=== PATIENT | female | born 2000 | race Caucasian/White ===

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

== ENCOUNTER 2022-01-28 08:28 | Emergency (ER) | payer MEDICAID, SELFPAY ==
[2022-01-28 09:15] VITALS: BP 101/63; PULSE 110; RESP 16; TEMP 36.8; O2SAT 100
--- NOTE | 2022-01-28 10:00 | W.ED.GENAD ---
Discharge Plan Disposition Patient Disposition: HOME Condition: Stable Discharge Details Clinical Impression: Chest wall muscle strain Primary Care Provider: Jamar Trivedi ED Provider: Miguel Gonzales Home Meds and New Rx's Prescriptions: Continued prenat.vits,sherman,hxl-iyko-feetl Tablet 1 tab PO DAILY ondansetron 4 mg tablet,disintegrating 4 mg PO Q6H PRN (Reason: nausea and vomiting) Qty: 60 0RF acetaminophen 500 mg Tablet 1,000 mg PO PRN PRN Discharge Instructions Instructions: Muscle Strain (ED) Additional Instructions: You may continue to use czsl-dsw-[id number] acetaminophen and and get plenty of rest along with stay well-hydrated. If you develop any new or significant worsening of symptoms feel free to return to the emergency department for reassessment otherwise follow-up with your primary care provider or supervisor public message service for reassessment. Stand Alone Forms: Work Release Referrals: Jamar Trivedi [Primary Care Provider] - Discharge Data Discharge Date/Time-TO BE ENTERED AT DEPARTURE: 01/28/22 10:10 Medical Decision Making Patient presenting to the emergency department for chief complaint of chest wall pain. Patient reports that this occurred 4 days ago and denies any injury or trauma. Patient does report that she is approximately 9 weeks and has had significant amount of nausea and vomiting. Physical exam shows tenderness to the mid paraspinal tissue that reproduces pain. Patient also does have some tenderness with palpation of the lower ribs from the bra line down. Abdomen is soft and nontender and exam is otherwise unremarkable. I feel patient has musculoskeletal strain secondary to nausea and vomiting. Patient did recently have a ultrasound and has a viable intrauterine and denies any vaginal or lower pelvic symptoms. Will encourage continued use of acetaminophen and instructed patient on measures to attempt to well control nausea vomiting which I feel is contributing factor. Do not feel that patient needs further work-up at this time but did discuss low threshold to return for any new or significant worsening of symptoms. After discussion of diagnosis and plan of care patient has no further needs, questions, or concerns and states clear understanding to return to the emergency department for any worsening symptoms. This documentation was generated using [employer]ation system, please disregard any oddities of phrase or misspellings. HPI General Mode of arrival: ambulatory. Date/Time Provider Initiated Documentation: 01/28/22 08:43. Limitations to Documentation: no limitations. Information obtained by: patient. History of Present Illness 21 year old F presents to the emergency department with the chief complaint of rib pain , described as moderate, with intensity rated at 8. Quality is described as aching, and is localized to the chest. Patient started experiencing this day(s) (4) and it has been constant. No relieving factors improve symptom(s), Movement worsens symptoms . Patient notes no other symptoms.. Patient did receive the following treatments prior to arrival, other (Acetaminophen) Related Data Home Medications Medication Instructions Recorded Confirmed prenat.vits,sherman,vxn-xafg-yzwke 1 tab PO DAILY 07/21/21 01/28/22 acetaminophen 500 mg tablet 1,000 mg PO PRN PRN 09/03/21 01/28/22 ondansetron 4 mg disintegrating 4 mg PO Q6H PRN nausea and 01/19/22 01/28/22 tablet vomiting #60 tabs Previous Rx's Medication Instructions Recorded ondansetron 4 mg disintegrating 4 mg PO Q6H PRN nausea and 01/19/22 tablet vomiting #60 tabs Allergies Allergy/AdvReac Type Severity Reaction Status Date / Time No Known Allergies Allergy Verified 01/28/22 09:23 General Stated Complaint: Chest/Rib ARMANI: 4 Review of Systems Constitutional Constitutional: Denies chills and Denies fever(s) Cardiovascular Cardiovascular: Denies chest pain and Denies dyspnea Respiratory Respiratory: Denies cough and Denies dyspnea Gastrointestinal Gastrointestinal: Denies abdominal pain, Reports nausea and Reports vomiting Genitourinary Genitourinary: Denies abnormal vaginal bleeding, Denies dysuria, Denies flank pain and Denies vaginal discharge Musculoskeletal Musculoskeletal: Reports as per HPI, Reports back pain, Denies numbness and Denies tingling Integumentary/Breasts Skin/Breast: Reports system reviewed and no additional complaints, except as documented Neurologic Neurologic: Denies numbness and Denies tingling PFSH All Active Problems (Updated 01/28/22 @ 10:01 by Miguel Gonzales NP) Chest wall muscle strain (Acute) Headache (Acute) Upper respiratory infection (Acute) Obstructive sleep apnea (Chronic) Migraine aura without headache (Acute) Snoring (Acute 05/27/15) Medical History (Updated 01/28/22 @ 10:01 by Miguel Gonzales, STENCIL PRINTER) Adjustment disorder Migraine Missed 9w EGA. D&C 09/03/21. Surgical History H/O dilation and curettage 09/03/21. for missed ab at 9w EGA. History of oral surgery Family History Mother Cervical cancer Social History Smoking/Tobacco Use Status: Never Smoking risk assessment performed?: Yes Alcohol Intake: never Drug use: Never Substance use type: does not use Household members: other Details: - Noah Number of Children: 0 Education Level: high school Do you feel safe at home: Yes Do you feel safe in your relationship?: Yes Female Reproductive History Menstrual control method: none History History 1 Para Hx # Term Pregnancies Multiple births Hx # Pregnancies Ectopic pregnancies AB induced Hx Number of Living Children AB spontaneous 1 Past Pregnancies Del. Date GA/Weeks # Preg Succ Route Wgt Sex Labor Lgth Anesthesia Location Prov [facility] 09/03/21 9 [place]i [place] Delivery Date: 09/03/21 Last Updated by: Lexi Donato LPN missed ab Exam Const General: cooperative, healthy appearing, comfortable, no acute distress, not diaphoretic and not ill appearing Nutritional Appearance: average body habitus Orientation: alert, awake and oriented x3 Limitations: mental status not altered Neck Neck: normal visual inspection, full ROM, trachea midline, supple and no anterior neck swelling Chest Chest: normal inspection of the chest and tenderness rib Resp Effort & Inspection: normal respiratory effort and able to speak in complete sentences Auscultation: clear to auscultation bilaterally Cardio Jugular venous pressure: no JVD Palpation: normal PMI Rate: regular rate Rhythm: regular rhythm Heart Sounds: S1 normal, S2 normal, no click, no gallops, no murmurs and no rubs Bruits: no abdominal aortic bruits and no carotid bruits Pulses: radial pulses present bilaterally 2+ GI Inspection: normal to inspection Palpation: soft, no aortic enlargement, no pulsatile masses and nontender Auscultation: normal bowel sounds Back/Spine/Pelvis Thoracic/Lumbar Spine: thoracic and lumbar spine normal to inspection, pain with thoraco-lumbar ROM, paraspinal tenderness, No thoraco-lumbar ROM limited, No thoracic spinal tenderness and No lumbar spinal tenderness Skin General skin exam: no rashes or lesions noted Neuro General: patient alert, patient awake, patient oriented x3, tone normal and moves all extremities Course Vital Signs Vital signs: Vital Signs Temperature 36.8 C 01/28/22 09:15 Pulse 110 H 01/28/22 09:15 Respiratory Rate 16 01/28/22 09:15 Blood Pressure 101/63 01/28/22 09:15 Pulse Oximetry 100 01/28/22 09:15 Temperature 36.8 C 01/28/22 09:15 Pulse 110 H 01/28/22 09:15 Respiratory Rate 16 01/28/22 09:15 Respiratory Effort Non-Labored 01/28/22 09:20 Respiratory Depth Normal 01/28/22 09:20 Respiratory Pattern Normal 01/28/22 09:20 Blood Pressure 101/63 01/28/22 09:15 Blood Pressure Position Sitting 01/28/22 09:15 Pulse Oximetry 100 01/28/22 09:15 Oxygen Delivery Method Room Air 01/28/22 09:15 Oxygen Flow Rate 0 01/28/22 09:15 Pain Level 8 01/28/22 09:20
== END 2022-01-28 10:10 | disposition home or self-care (01) ==
PROVIDERS: Emergency Provider Nurse Practitioner Family; PCP Family Medicine
DX: O9A.211 Injury, poisoning and certain other consequences of external causes complicating pregnancy, first trimester (principal); S29.011A Strain of muscle and tendon of front wall of thorax, initial encounter; O09.291 Supervision of pregnancy with other poor reproductive or obstetric history, first trimester; Z98.890 Other specified postprocedural states; Z3A.09 9 weeks gestation of pregnancy; X50.9XXA Other and unspecified overexertion or strenuous movements or postures, initial encounter
CPT/HCPCS: 99281; 99282

== ENCOUNTER 2022-02-12 02:28 | Outpatient (CLI) | payer MEDICAID, SELFPAY ==
--- NOTE | 2022-02-12 14:00 | DI.US_ITS ---
Exam(s) US OB 1ST TRIMESTER EXAM: US OB 1ST TRIMESTER CLINICAL HISTORY: Unable to find FHT with doppler, h/o miscarriage, r/o demise @ 11 wks TECHNIQUE: Ultrasound performed using standard protocol. COMPARISON: No exams were available for comparison FINDINGS: First trimester protocol Ob ultrasound was performed. There is suspected demise. There is a n onviable fetus with crown-rump length measurements consistent with gestational age 8 weeks 2 days vis ualized in an abnormal appearing gestational sac. No cardiac activity identified. IMPRESSION: The appearance is consistent with demise of an 8 week gestation. DATA REPOSITORY:
[2022-02-12 18:30] LABS: *AMPHETAMINES SCREEN URINE Negative (Negative); *BARBITURATES SCREEN URINE Negative (Negative); *BENZODIAZEPINES SCREEN URINE Negative (Negative); Cannabinoids THC Negative (Negative); Cocaine Screen,Urine Negative (Negative); METHADONE URINE SCREEN Negative (Negative); OPIATES URINE SCREEN Negative (Negative)
[2022-02-12 18:31] LABS: Tricyclic Antidepressants Negative (Negative)
[2022-02-19 14:26] LABS: Buprenorphine Negative ng/mL (Cutoff: 5.0); Norbuprenorphine Negative ng/mL (Cutoff: 2.5)
== END 2022-02-12 02:29 | disposition home or self-care (01) ==
PROVIDERS: PCP Family Medicine; Visit Provider Advanced Practice Midwife
DX: O02.1 Missed abortion (principal)
CPT/HCPCS: 80307; 80348; 87077; 76801; 87086; 87186

== ENCOUNTER 2022-02-16 11:41 | Outpatient (CLI) | payer MEDICAID, SELFPAY ==
[2022-02-16 15:33] LABS: HCT 36.7 % (36.0-46.0); MCH 32.1 pg (27.0-33.0); MCHC 35.4 % (32.0-36.0); MCV 91 fL (80-95); MPV 8.8 fL (8.0-11.0); Platelet Count 315 10^3/uL (130-400); RBC 4.05 10^6/uL (3.93-5.22); RDW-SD 40.2 fL; WBC 13.26 10^3/uL (4.4-10.8)
[2022-02-16 16:19] LABS: HCG Qual (Serum) Positive
== END 2022-02-16 11:42 | disposition home or self-care (01) ==
LOC: LBO 11:43
PROVIDERS: PCP Family Medicine; Visit Provider Obstetrics & Gynecology Gynecology
DX: O02.1 Missed abortion (principal); Z01.818 Encounter for other preprocedural examination; Z01.812 Encounter for preprocedural laboratory examination
CPT/HCPCS: 36415; 85027; 86850; 86900; 86901; 84703

== ENCOUNTER 2022-02-18 07:19 | Day surgery (SDC) | payer MEDICAID, SELFPAY ==
[2022-02-18 07:15] VITALS: BP 98/66; PULSE 88; RESP 18; TEMP 36.7; O2SAT 99
[2022-02-18] MEDS: DOXYCYCLINE 100 MG in Normal Saline 100 ML IVPB (07:45)
[2022-02-18] MEDS: Lactated Ringers 1,000 ML 125 ML IV (07:47)
--- NOTE | 2022-02-18 08:32 | ANES.PREOP_ITS ---
General Info Date of Service Date Performed: 02/18/22 Height: 5 ft 1 in Weight: 48.9 kg Body Mass Index (BMI): 20.3 Surgical Procedure: Operation Date: 02/18/22 08:55 Proposed Procedure Side Surgeon p D&C Suction Completion, Cervical Dilation Arti Singleton MD Meds Allergies and Home Medications Allergies Allergy/AdvReac Type Severity Reaction Status Date / Time No Known Allergies Allergy Verified 02/18/22 06:57 Home Medication Medication Instructions Recorded prenat.vits,sherman,kdq-zfnk-gjads 1 tab PO DAILY 07/21/21 acetaminophen 500 mg tablet 1,000 mg PO PRN PRN 09/03/21 ondansetron 4 mg disintegrating 4 mg PO Q6H PRN nausea and 01/19/22 tablet vomiting #60 tabs nitrofurantoin 100 mg PO BID #14 caps 02/13/22 monohydrate/macrocrystals 100 mg capsule (Macrobid) Current Visit Medications: Current Medications Generic Name Dose Route Start Last Admin Trade Name Freq PRN Reason Stop Dose Admin Ringer's Solution 1,000 mls @ 125 mls/hr 02/18/22 06:00 02/18/22 07:47 IV 03/19/22 23:59 125 mls/hr INFUSION ISAIAH Administration Doxycycline Hyclate 100 mg/ 100 mls @ 100 mls/hr 02/18/22 06:00 02/18/22 07:45 Sodium Chloride IVPB 02/18/22 18:00 100 mls/hr PREOP ISAIAH Administration IV Miscellaneous Supplies 1 each 02/18/22 06:00 Iv Access IV 03/19/22 23:59 DIRECTED ISAIAH Sodium Chloride 0 ml 02/18/22 06:00 Normal Saline Flush 10 Ml Syr IV 03/19/22 23:59 PRN PRN Sodium Chloride 0 ml 02/18/22 06:00 Normal Saline 10 Ml Vial IJ 03/19/22 23:59 DIRECTED PRN Sterile Water 0 ml 02/18/22 06:00 Water,Injection,Sterile 10 Ml Vial IJ 03/19/22 23:59 DIRECTED PRN PFSH Active Problems Active Problems: Problem Status Onset Code E. coli UTI N39.0, B96.20 History of miscarriage, currently O09.299 Chest wall muscle strain S29.011A Headache R51.9 Upper respiratory infection J06.9 Obstructive sleep apnea G47.33 Migraine aura without headache G43.109 Snoring 05/27/15 R06.83 Medical History Medical History Adjustment disorder Migraine Missed 9w EGA. D&C 09/03/21. Surgical History Surgical History H/O dilation and curettage 09/03/21. for missed ab at 9w EGA. History of oral surgery Tobacco Smoking/Tobacco Use Status: Never Alcohol Alcohol Intake: never Substance Use Substance use: Never Substance use type: does not use Prental History History 1 Para 0 Hx # Term Pregnancies 0 Multiple births 0 Hx # Pregnancies 0 Ectopic pregnancies 0 AB induced 0 Hx Number of Living Children 0 AB spontaneous 1 Past Pregnancies Del. Date GA/Weeks # Preg Succ Route Wgt Sex Labor Lgth Anesth esia Location [facility] 09/03/21 9 [place]i [place] Delivery Date: 09/03/21 Last Updated by: Lexi Donato LPN missed ab Vital Signs and Lab Results Vital Signs Most Recent Vital Signs in EMR: Most Recent Vital Signs Temp Pulse Resp BP Pulse Ox 36.7 C 88 18 98/66 L 99 02/18/22 07:15 02/18/22 07:15 02/18/22 07:15 02/18/22 07:15 02/18/22 07:15 Lab Results Blood Type / Crossmatch: Patient ABO/Rh A Positive 02/16/22 Antibody Screen NEGATIVE 02/16/22 Complete Blood Count: White Blood Count 13.26 10^3/uL (4.4-10.8) H 02/16/22 15:29 Red Blood Count 4.05 10^6/uL (3.93-5.22) 02/16/22 15:29 Hemoglobin 13.0 g/dL (11.2-15.7) 02/16/22 15:29 Hematocrit 36.7 % (36.0-46.0) 02/16/22 15:29 Platelet Count 315 10^3/uL (130-400) 02/16/22 15:29 Complete Metabolic Panel: No Data to Display Liver Function Panel: No Data to Display Coagulation Panel: No Data to Display Cardiac Panel: No Data to Display Arterial Blood Gas: No Data to Display Venous Blood Gas: No Data to Display Pancreas Panel: No Data to Display Thyroid Panel: No Data to Display Infectious Disease: No Data to Display Blood Cultures: No Data to Display Toxicology Panel: Urine Amphetamines Screen Negative (Negative) 02/12/22 16:30 Urine Benzodiazepines Screen Negative (Negative) 02/12/22 16:3 0 Urine Barbiturates Screen Negative (Negative) 02/12/22 16:30 Urine Cocaine Screen Negative (Negative) 02/12/22 16:30 Urine Methadone Screen Negative (Negative) 02/12/22 16:30 Urine Opiates Screen Negative (Negative) 02/12/22 16:30 Ur Tricyclic Antidepressants Screen Negative (Negative) 16:30 Ur Tetrahydrocannabinol (THC) Scrn Negative (Negative) 2 16:30 Panel: Serum HCG, Qualitative Positive A 02/16/22 15:29 Anesthesia Assessment and Plan Anesthesia History Personal History: No History of Anesthesia Complications Family History: No Family History of Anesthesia Complications Exercise Tolerance Exercise Tolerance: Metabolic Equivalents>4 Pertinent Negatives Pertinent Negatives: No Symptoms of GERD, No Major Cardiovascular Symptoms or Complaints and No Major Pulmonary Symptoms or Complaints Cardiac & Pulmonary Exam Cardiac Exam: Normal S1/S2 Heart Sounds Pulmonary Exam: Clear Bilateral Breath Sounds Implantable Cardiac Device Does patient have a Pacemaker or an ICD?: No Airway Exam Known Difficult Airway: No Mallampati Class: 1 Mouth Opening: Normal (> 3cm) Thyromental Distance: Greater than 3 cm Neck Range of Motion: Full ROM Neck Circumference: Normal Teeth Condition: Normal Dentition ASA Classification ASA Score: ASA 2 Emergency Case?: No NPO Status NPO Status: NPO Clears >2 hours, Solids >8 hours Status Status: Positive HCG Anesthesia Plan Resuscitation Status: Full Code Anesthesia Technique: General Anesthesia Airway Planned: Natural Airway Monitors Used: Standard Monitors
[2022-02-18 08:36] VITALS: BMI 20.3
[2022-02-18] MEDS: Bupivacaine 0.25% Pres-Free 30 ML VIAL (09:22)
--- NOTE | 2022-02-18 09:30 | POCSPONT_PTH ---
PATIENT: Cristela Bravo LOC: [facility] U#:[id number] AGE/SX: 21/F ROOM: RE02/18/[address]: Arti Singleton : 2000 BED: DIS: 02/18/2022 SPEC #: [id number] RECD: 02/18/22 12:38 STATUS: NICOLLE REQ #: [id number] PATRICIA: 02/18/22 09:[address]: Arti Singleton DEPT: Surgical Specimen RECD BY: Ariana Colmenaers ENTERED: 02/18/22 12:39 SP TYPE: POCSPONT ELLE DR: Jamar Trivedi Tissues: 1 - ,SPONTANEOUS CHROMOSOME ANALYSIS PROFILE Procedures: GROSS AND MICRO LEVEL 4 CHROMOSOME ANALYSIS 15-20 CELLS CHROMOSOME ANALYSIS TISSUE CULTURE Comments: [id number] (CYTOGENETICS [id number])
--- NOTE | 2022-02-18 10:18 | W.PM.DSUDISC ---
Discharge Plan Disposition Patient Disposition: HOME Condition: Good Discharge Details Reason For Visit: D&C Attending Provider: Arti Singleton Primary Care Provider: Jamar Trivedi Home Meds and New Rx's Prescriptions: No Action prenat.vits,sherman,ipg-mcul-mxboy Tablet 1 tab PO DAILY ondansetron 4 mg tablet,disintegrating 4 mg PO Q6H PRN (Reason: nausea and vomiting) Qty: 60 0RF nitrofurantoin monohyd/m-cryst [Macrobid] 100 mg capsule 100 mg PO BID Qty: 14 0RF Rx Instructions: must administer with a meal/food acetaminophen 500 mg Tablet 1,000 mg PO PRN PRN Discharge Instructions Additional Instructions: The tissue has been sent for analysis of the chromosomes that formed the . We are trying to see if there is a genetic cause for your two recent miscarriages. No intercourse until your 2 week postop visit. Stand Alone Forms: DSU Post D&C Miscarriage Activity:: Activity as Tolerated Diet:: As Tolerated Discharge Orders Discharge Orders: Discharge Order (Routine); Ordered 02/18/22 Ordered By: Arti Singleton DS: Diagnosis Discharge Diagnosis (1) Missed : Status: Acute Asessment and Plan: CRL 9w EGA. Dx at 11w EGA
[2022-02-18 10:25] VITALS: BP 96/56; PULSE 66; RESP 16; TEMP 36.2; O2SAT 100
[2022-02-18] MEDS: oxyCODONE 5 mg/Acetaminophen 325 mg TAB 2 TAB PO (10:25)
--- NOTE | 2022-02-18 11:46 | W.ANESPOSTOP ---
Postoperative Evaluation Date, Time and Location Date Performed: 02/18/22 Time Performed: 11:47 Patient Location: Day Surgery Unit Vital Signs Most Recent Imported Vital Signs: Most Recent Vital Signs Temp Pulse Resp BP Pulse Ox 36.2 C L 66 16 96/56 L 100 02/18/22 10:25 02/18/22 10:25 02/18/22 10:25 02/18/22 10:25 02/18/22 10:25 Pain Score Most Recent Pain Score: Most Recent Pain Score Pain Level 3 02/18/22 1150 Assessment Mental Status: Awake (Alert & Oriented to Patient Baseline) Airway and Respiratory Function: Patent airway with normal (patient baseline) respiratory exam Cardiovascular Function: Hemodynamically Stable Hydration Status: Adequately Hydrated Nausea & Vomiting: No Nausea or Vomiting Pain: Pain is tolerable per patient Peripheral Nerve Block: Patient did not receive a nerve block
--- NOTE | 2022-02-22 05:30 | W.PM.OP ---
Date of service: 02/22/22 Time of Service: 05:30 Operative Note Operative Note DATE OF PROCEDURE: 02/18/22 PRE-OP DIAGNOSIS: Missed @ 8 weeks EGA PROCEDURE: Cervical dilation and suction D&C SURGEON: Arti Singleton MACHINE SWEEPER BRUSH MAKER: Rufina Alvarado Refer to Anesthesia Record ESTIMATED BLOOD LOSS: 15 PATHOLOGY: other (POC for chromosome testing. POC for pathology) COMPLICATIONS: None Patient was transported to: same day Patient's condition: stable Indications: 21yo female diagnosed with missed at time of 11w5d visit. CRL measurement c/w 8w embryonic demise. Findings: Bah non-viable IUP with collapsing gestational sac. Procedure Description: Patient was taken to the operating room where she was placed in the dorsal supine position and general anesthesia was administered without difficulty. IV Doxycycline was administered prior to arrival in the OR. She was then placed in the dorsal lithotomy position in yellowfin stirrups in a neurologically neutral position. She was then prepped, and draped in the usual sterile fashion. Surgical timeout was performed. A transabdominal ultrasound was used to visualize the uterus and intrauterine contents during the procedure. [place] speculum was placed into the vagina and the anterior lip of the cervix was infiltrated with 2 cc of 0.25% Marcaine without epinephrine. A single-tooth tenaculum was then used to grasp and hold the anterior lip of the cervix. A paracervical block was performed with 4 cc of 0.25% Marcaine injected into the 4 and 8:00 paracervical spaces respectively. The cervix was then sequentially dilated to a maximum of 16 Browne and a 8 mm curved suction cannula was attached to suction and the level of suction tested. The cannula was inserted into the uterine cavity attached to suction and sequentially all 4 quadrants of the uterine cavity were suction curetted until minimal tissue returned and the uterine cavity was empty as visualized on transabdomenal ultrasound. The suction cannula was then removed a banjo curette was used to perform a gentle curetting of all 4 quadrants of the uterine cavity. Minimal tissue was returned. A final insertion of the suction cannula and suction curetting of all 4 quadrants was performed. All instruments were removed from the vagina. The tenaculum site was noted to be bleeding. A interupted suture of 2-0 Vicryl was used to achieve hemostatisis. Pt was then placed in dorsal supine position. She was then awakened and transported to recovery area in stable condition. All sponge lap needle counts correct x2
== END 2022-02-18 11:56 | disposition home or self-care (01) ==
PROVIDERS: PCP Family Medicine; Visit Provider Obstetrics & Gynecology Gynecology
PROC: (CPT 59841; principal; 2022-02-18 08:45)
DX: O02.1 Missed abortion (principal); Z3A.08 8 weeks gestation of pregnancy
CPT/HCPCS: 59820; 88305; 88233; 88262; J1100; J1885; J2250; J2405; J3010

== ENCOUNTER 2022-03-04 03:21 | Outpatient (CLI) | payer MEDICAID, SELFPAY ==
[2022-03-04 12:50] LABS: HCG Quant, Pregnancy 67 mIU/mL (1-3)
[2022-03-04 17:35] LABS: INR 1.1 Ratio (0.9-1.1); PTT (UVM) 35 secs (26-37)
[2022-03-04 18:01] LABS: D-Dimer (UVM) <200 ng/mL DDU (<=230)
[2022-03-05 10:07] LABS: Antithrombin 3, Funct. 94 % (85-125); Factor 8 Assay 59 % (50-150)
[2022-03-05 17:11] LABS: Dilute Russell Viper Venom 32.5 secs (25.2-42.2); Silica Clotting Time 51.2 secs (30.2-48.4)
[2022-03-05 17:43] LABS: Beta 2 GP1 Ab IgG <9.4 U/mL; Beta 2 GP1 Ab IgM <9.4 U/mL
[2022-03-06 08:44] LABS: LA Cascade Summary (See Note)
[2022-03-06 08:49] LABS: Mix See Comments
[2022-03-06 14:37] LABS: Phospholipid Ab, IgG <9.4 GPL; Phospholipid Ab, IgM <9.4 MPL
[2022-03-11 11:24] LABS: Protein C, Functional 112 % (71-199); Protein S, Functional 100 % (64-147)
== END 2022-03-04 03:22 | disposition home or self-care (01) ==
LOC: LBO 03:21
PROVIDERS: PCP Family Medicine; Visit Provider Obstetrics & Gynecology Gynecology
DX: O02.1 Missed abortion (principal); N96 Recurrent pregnancy loss
CPT/HCPCS: 36415; 81241; 82784; 85300; 85303; 85306; 85610; 85613; 85730; 85732; 84702; 85240; 85379

== ENCOUNTER 2022-06-10 04:18 | Outpatient (CLI) | payer MEDICAID, SELFPAY ==
[2022-06-10 09:18] LABS: HCG Quant, Pregnancy 1 mIU/mL (1-3)
== END 2022-06-10 04:19 | disposition home or self-care (01) ==
LOC: LBO 04:19
PROVIDERS: PCP Family Medicine; Visit Provider Obstetrics & Gynecology Gynecology
DX: O08.89 Other complications following an ectopic and molar pregnancy (principal)
CPT/HCPCS: 36415; 84702

== ENCOUNTER 2022-06-16 11:08 | Emergency (ER) | payer MEDICAID, SELFPAY ==
[2022-06-16 11:30] VITALS: BP 113/97; PULSE 134; RESP 18; TEMP 38; O2SAT 99
[2022-06-16 12:50] VITALS: BP 116/72; PULSE 114; RESP 16; TEMP 37.8; O2SAT 96
[2022-06-16] MEDS: Ketorolac 15 MG/ML VIAL IVP (14:10)
[2022-06-16] MEDS: Normal Saline 1,000 ML 1000 ML IV (14:10)
[2022-06-16] MEDS: Albuterol HFA 8 GM 60 PUFF INH IH (14:28)
--- NOTE | 2022-06-16 15:30 | DI.RAD_ITS ---
Exam(s) XR CHEST 2V PA LATERAL EXAM: XR CHEST 2V PA LATERAL CLINICAL HISTORY: cough, fever. TECHNIQUE: 2D digital imaging was performed. COMPARISON: CR XR CHEST 2V PA LATERAL from 02/24/2021 FINDINGS: 2 views: Heart size is normal. The mediastinum is not widened. Lungs are clear. No infiltrates nor pleural effusions. Bidirectional thoracolumbar scoliosis again noted. IMPRESSION: No acute pulmonary findings. Scoliosis again noted. DATA REPOSITORY: RADIATION DOSE DELIVERED:
--- NOTE | 2022-06-16 15:31 | W.ED.GENAD ---
Discharge Plan Disposition Patient Disposition: Home Condition: Stable Discharge Details Clinical Impression: Viral illness Primary Care Provider: Jamar Trivedi ED Provider: Miguel Gonzales Home Meds and New Rx's Prescriptions: New albuterol sulfate 90 mcg/actuation aerosol powdr breath activated 2 inh inhalation Q4H PRN (Reason: shortness of breath or wheezing) Qty: 1 0RF benzonatate 200 mg capsule 200 mg PO TID PRN (Reason: cough) Qty: 30 0RF Continued ibuprofen 600 mg tablet 600 mg PO Q6H PRN (Reason: pain) Qty: 30 1RF prenat.vits,sherman,[id number] Tablet 1 tab PO DAILY ondansetron 4 mg tablet,disintegrating 4 mg PO Q6H PRN (Reason: nausea and vomiting) Qty: 60 0RF acetaminophen 500 mg Tablet 1,000 mg PO PRN PRN fluoxetine 20 mg capsule 20 mg PO DAILY Patient Comments: TAKE 1 CAPSULE BY MOUTH ONCE DAILY Discharge Instructions Instructions: Viral Syndrome (ED) Additional Instructions: It is very important during viral illness that you get plenty of rest and stay well-hydrated. Continue to take [id number] medications for pain fever or symptoms just take as directed on packaging. If you develop any new or significant worsening of symptoms feel free to return the emergency department otherwise follow-up with your primary care provider if not improving in the next week. Stand Alone Forms: Work Release Referrals: Jamar Trivedi [Primary Care Provider] - 1 week (If not improving) Discharge Data Discharge Date/Time-TO BE ENTERED AT DEPARTURE: 06/16/22 16:04 Medical Decision Making Viral cold type symptoms x1 day with chest tightness, cough, headaches, body aches. Physical exam shows tachycardia, no tachypnea, no hypoxia, HEENT exam unremarkable and clear lung sounds. Given significant tachycardia and fever will give patient Toradol and IV fluids, rapid antigen COVID testing was performed at triage and is negative. Patient denies any known exposure. Given chest tightness will give albuterol and perform chest x-ray. Review of x-ray shows no acute findings. Patient does state improvement of symptoms after interventions. Will prescribe patient Tessalon Perles and albuterol inhaler to use for symptoms along with work note. Monitoring of symptoms along with return and follow-up precautions were discussed. After discussion of diagnosis and plan of care patient has no further needs, questions, or concerns and states clear understanding to return to the emergency department for any worsening symptoms This documentation was generated using [employer] dictation system, please disregard any oddities of phrase or misspellings. Imaging Data Radiologic Study: Imaging: X-Ray Radiologist's impression: EXAM: XR CHEST 2V PA LATERAL CLINICAL HISTORY: cough, fever. TECHNIQUE: 2D digital imaging was performed. COMPARISON: CR XR CHEST 2V PA LATERAL from 02/24/2021 FINDINGS: 2 views: Heart size is normal. The mediastinum is not widened. Lungs are clear. No infiltrates nor pleural effusions. Bidirectional thoracolumbar scoliosis again noted. IMPRESSION: No acute pulmonary findings. Lab Data Lab results reviewed: Yes I reviewed the patient's lab results. HPI General Mode of arrival: ambulatory. Date/Time Provider Initiated Documentation: 06/16/22 11:37. Limitations to Documentation: no limitations. Information obtained by: patient and RN notes reviewed. History of Present Illness 21 year old F presents to the emergency department with the chief complaint of Cough, chest tightness, body aches, fever, described as moderate, with intensity rated at 6. Quality is described as aching, and is localized to the head. Patient reports no radiation. Patient started experiencing this day(s) (1) and it has been constant. No relieving factors improve symptom(s), No exacerbating factors reported . Patient notes cough, fever/chills and malaise. Patient did receive the following treatments prior to arrival, none Related Data Home Medications Medication Instructions Recorded Confirmed prenat.vits,sherman,[id number] 1 tab PO DAILY 07/21/21 06/16/22 acetaminophen 500 mg tablet 1,000 mg PO PRN PRN 09/03/21 06/16/22 ondansetron 4 mg disintegrating 4 mg PO Q6H PRN nausea and 01/19/22 06/16/22 tablet vomiting #60 tabs ibuprofen 600 mg tablet 600 mg PO Q6H PRN pain #30 tabs 02/18/22 06/16/22 albuterol sulfate 90 mcg/actuation 2 inh inhalation Q4H PRN shortness 06/16/22 breath activated powder inhaler of breath or wheezing #1 ea benzonatate 200 mg capsule 200 mg PO TID PRN cough #30 caps 06/16/22 fluoxetine 20 mg capsule 20 mg PO DAILY 06/16/22 06/16/22 Previous Rx's Medication Instructions Recorded ondansetron 4 mg disintegrating 4 mg PO Q6H PRN nausea and 01/19/22 tablet vomiting #60 tabs ibuprofen 600 mg tablet 600 mg PO Q6H PRN pain #30 tabs 02/18/22 albuterol sulfate 90 mcg/actuation 2 inh inhalation Q4H PRN shortness 06/16/22 breath activated powder inhaler of breath or wheezing #1 ea benzonatate 200 mg capsule 200 mg PO TID PRN cough #30 caps 06/16/22 Allergies Allergy/AdvReac Type Severity Reaction Status Date / Time No Known Allergies Allergy Verified 06/16/22 11:34 General Stated Complaint: GenMedical ARMANI: 3 Review of Systems Constitutional Constitutional: Reports body ache(s), Reports chills, Reports fever(s), Reports headache(s) and Reports malaise ENT Ears, Nose, Mouth, and Throat: Reports headache(s), Denies neck pain and Denies sore throat Cardiovascular Cardiovascular: Denies chest pain and Denies dyspnea Respiratory Respiratory: Reports cough, Reports pain with cough and Denies dyspnea Gastrointestinal Gastrointestinal: Reports nausea Musculoskeletal Musculoskeletal: Reports myalgias and Denies neck pain Integumentary/Breasts Skin/Breast: Denies rash Neurologic Neurologic: Reports headache(s) PFSH All Active Problems (Updated 06/16/22 @ 15:39 by Miguel Gonzales NP) Viral illness (Acute) Partial molar (Acute) 03/04/22. Will repeat hCG 03/2022, 04/2022. Encounter for Depo-Provera contraception (Acute) Contraception (Acute) Recurrent loss (Acute) Missed (Acute) 02/12/22 at 9w EGA by CRL. D&C at 11w EGA. E. coli UTI (Acute) History of miscarriage, currently (Acute) Headache (Acute) Upper respiratory infection (Acute) Obstructive sleep apnea (Chronic) Migraine aura without headache (Acute) Snoring (Acute 05/27/15) Medical History (Updated 06/16/22 @ 15:39 by Miguel Gonzales NP) Adjustment disorder Migraine Missed 9w EGA. D&C 09/03/21. Surgical History H/O dilation and curettage 09/03/21. for missed ab at 9w EGA. History of oral surgery Family History Mother Cervical cancer Social History Smoking/Tobacco Use Status: Never Smoking risk assessment performed?: Yes Alcohol Intake: never Drug use: Never Substance use type: does not use Household members: other Details: - Noah Number of Children: 0 Education Level: high school Do you feel safe at home: Yes Do you feel safe in your relationship?: Yes Female Reproductive History Menstrual control method: none History History 2 Para 0 Hx # Term Pregnancies 0 Multiple births 0 Hx # Pregnancies 0 Ectopic pregnancies 0 AB induced 0 Hx Number of Living Children 0 AB spontaneous 2 Past Pregnancies Del. Date GA/Weeks # Preg Succ Route Wgt Sex Labor Lgth Anesthesia Location [facility] 09/03/21 9 Arti Dutton 02/22/[address] Spencer Delivery Date: 09/03/21 Last Updated by: Lexi Donato LPN missed ab Delivery Date: 02/22/22 Last Updated by: Lexi Donato LPN missed ab Exam Const General: cooperative Orientation: alert and awake HENIL Head: normal to inspection, normocephalic and atraumatic Ears: hearing grossly normal bilaterally and TM's normal bilaterally General nose exam: external nose normal Face and sinus: no erythema Mouth: oral mucosae normal, no drooling, no muffled voice and no trismus Throat: posterior oropharynx normal Neck Neck: normal visual inspection, full ROM, no lymphadenopathy, no meningeal signs, trachea midline and supple Resp Effort & Inspection: normal respiratory effort, able to speak in complete sentences and cough Quality of cough: dry Auscultation: clear to auscultation bilaterally Cardio Rate: tachycardic Rhythm: regular rhythm Heart Sounds: S1 normal, S2 normal, normal S1 and S2, no click, no gallops, no murmurs and no rubs Skin General skin exam: no rashes or lesions noted and dry skin (warm) Neuro General: patient alert, patient awake, patient oriented x3, gait normal and moves all extremities Cognition: normal cognition Speech: speech normal Course Vital Signs Vital signs: Vital Signs Temperature 38.0 C H 06/16/22 11:30 Pulse 134 H 06/16/22 11:30 Respiratory Rate 18 06/16/22 11:30 Blood Pressure 113/97 H 06/16/22 11:30 Pulse Oximetry 99 06/16/22 11:30 Temperature 37.8 C H 06/16/22 12:50 Temperature Source Temporal Artery Scan 06/16/22 12:50 Pulse 114 H 06/16/22 12:50 Respiratory Rate 16 06/16/22 12:50 Respiratory Effort 06/16/22 11:35 Blood Pressure 116/72 06/16/22 12:50 Blood Pressure Position Sitting 06/16/22 11:30 Pulse Oximetry 96 06/16/22 12:50 Oxygen Delivery Method Room Air 06/16/22 12:50 Oxygen Flow Rate 0 06/16/22 12:50 Pain Level 10 06/16/22 11:30 Lab/Test Results Lab/Test Results: POC- Test(urine) Negative
[2022-06-16 15:54] VITALS: BP 116/72; PULSE 112; RESP 16; TEMP 38.6; O2SAT 96
== END 2022-06-16 16:04 | disposition home or self-care (01) ==
PROVIDERS: Emergency Provider Nurse Practitioner Family; PCP Family Medicine
DX: B34.9 Viral infection, unspecified (principal)
CPT/HCPCS: 81025; 96361; 96374; 99284; 71046; J1885

== ENCOUNTER 2022-12-25 07:14 | Emergency (ER) | payer MEDICAID, SELFPAY ==
[2022-12-25 07:20] VITALS: BP 104/57; PULSE 94; RESP 16; TEMP 36.9; O2SAT 98
--- NOTE | 2022-12-25 07:30 | RT.EKG_ITS ---
APPROVED REPORT Exam: Resting ECG Reason for Exam: pleuritic chest pain Patient Location: E HR:76 bpm ECG Measurements Heart Rate 76 AXIS [place] 116 P 18 QRSd 72 QRS 63 QT 353 T 38 QTc 397 Conclusion Sinus rhythm...normal P axis, V-rate 60- 99 sinius david , normal axis, normal intervals, non ischemic
--- NOTE | 2022-12-25 07:30 | DI.RAD_ITS ---
Exam(s) XR CHEST 2V PA LATERAL EXAM: XR CHEST 2V PA LATERAL CLINICAL HISTORY: right pleuritic chest pain. TECHNIQUE: 2D digital imaging was performed. COMPARISON: CR XR CHEST 2V PA LATERAL from 06/16/2022 FINDINGS: 2 views: Heart size is normal. The mediastinum is not widened. Lungs are clear. No infiltrates nor pleural effusions. Mild bidirectional thoracolumbar scoliosis is again noted, unchanged. IMPRESSION: No acute pulmonary findings. DATA REPOSITORY: RADIATION DOSE DELIVERED:
--- NOTE | 2022-12-25 07:44 | W.ED.GENAD ---
Discharge Plan Disposition Patient Disposition: Home Condition: Stable Discharge Details Clinical Impression: UTI (urinary tract infection) Primary Care Provider: Jamar Trivedi ED Provider: Ulises Manley Home Meds and New Rx's Prescriptions: New cefpodoxime 200 mg tablet 200 mg PO BID 10 Days Qty: 20 0RF Rx Instructions: must administer with a meal/food No Action ibuprofen 600 mg tablet 600 mg PO Q6H PRN (Reason: pain) Qty: 30 1RF prenat.vits,sherman,[id number] Tablet 1 tab PO DAILY ondansetron 4 mg tablet,disintegrating 4 mg PO Q6H PRN (Reason: nausea and vomiting) Qty: 60 0RF medroxyprogesterone [Depo-Provera] 150 mg/mL syringe 150 mg IM Q12W Qty: 1 4RF acetaminophen 500 mg Tablet 1,000 mg PO PRN PRN fluoxetine 20 mg capsule 20 mg PO DAILY Patient Comments: TAKE 1 CAPSULE BY MOUTH ONCE DAILY albuterol sulfate 90 mcg/actuation aerosol powdr breath activated 2 inh inhalation Q4H PRN (Reason: shortness of breath or wheezing) Qty: 1 0RF benzonatate 200 mg capsule 200 mg PO TID PRN (Reason: cough) Qty: 30 0RF Discharge Instructions Instructions: Urinary Tract Infection in Women (ED) Medical Decision Making 22-year-old female presents with right-sided pleuritic chest pain over the last day, posterior nature, nonradiating, no chest pain or shortness of breath, no hypoxia or tachypnea, borderline tachycardia, patient does use Depo control, no history of thromboembolic disease in the past, no leg swelling or pain. Lungs clear bilaterally no midline spinal tenderness. Consider recurrent pleurisy versus costochondritis versus must consider thromboembolic disease lower suspicion for pneumonia or pneumothorax muscles to consider musculoskeletal strain. Trial of Toradol, basic labs D-dimer EKG x-ray disposition pending reassessment and results 9: 17 patient resting comfortably no acute distress no respiratory symptoms. Found to have UTI. Consider early pyelo in the setting of UTI and back discomfort. Will start on cefpodoxime, home care instructions and return precautions given HPI General Date/Time Provider Initiated Documentation: 12/25/22 07:38. HPI Narrative: 22-year-old female presents with right-sided posterior pleuritic pain over the last day, endorses a history of pleurisy. Denies history of thromboembolic disease no leg swelling or pain no chest pain no shortness of breath. Patient is on depot control Related Data Home Medications Medication Instructions Recorded Confirmed prenat.vits,sherman,[id number] 1 tab PO DAILY 07/21/21 11/04/22 acetaminophen 500 mg tablet 1,000 mg PO PRN PRN 09/03/21 11/04/22 ondansetron 4 mg disintegrating 4 mg PO Q6H PRN nausea and 01/19/22 11/04/22 tablet vomiting #60 tabs ibuprofen 600 mg tablet 600 mg PO Q6H PRN pain #30 tabs 02/18/22 11/04/22 albuterol sulfate 90 mcg/actuation 2 inh inhalation Q4H PRN shortness 06/16/22 11/04/22 breath activated powder inhaler of breath or wheezing #1 ea benzonatate 200 mg capsule 200 mg PO TID PRN cough #30 caps 06/16/22 11/04/22 fluoxetine 20 mg capsule 20 mg PO DAILY 06/16/22 11/04/22 medroxyprogesterone 150 mg/mL 150 mg IM Q12W #1 mL 10/27/22 11/04/22 intramuscular syringe (Depo-Provera) cefpodoxime 200 mg tablet 200 mg PO BID 10 days #20 tabs 12/25/22 Previous Rx's Medication Instructions Recorded ondansetron 4 mg disintegrating 4 mg PO Q6H PRN nausea and 01/19/22 tablet vomiting #60 tabs ibuprofen 600 mg tablet 600 mg PO Q6H PRN pain #30 tabs 02/18/22 albuterol sulfate 90 mcg/actuation 2 inh inhalation Q4H PRN shortness 06/16/22 breath activated powder inhaler of breath or wheezing #1 ea benzonatate 200 mg capsule 200 mg PO TID PRN cough #30 caps 06/16/22 medroxyprogesterone 150 mg/mL 150 mg IM Q12W #1 mL 10/27/22 intramuscular syringe (Depo-Provera) cefpodoxime 200 mg tablet 200 mg PO BID 10 days #20 tabs 12/25/22 Allergies Allergy/AdvReac Type Severity Reaction Status Date / Time No Known Allergies Allergy Verified 06/28/23 10:16 General Stated Complaint: Nk/Back Pain ARMANI: 3 Review of Systems Narrative: Review of Systems Constitutional: negative Eyes: negative ENT: negative Cardiovascular: negative Respiratory: Pleuritic chest pain Gastrointestinal: negative : negative Musculoskeletal: negative Skin: negative Neurologic: negative Psych: negative PFSH All Active Problems (Updated 12/25/22 @ 09:18 by Ulises Manley MD) UTI (urinary tract infection) (Acute) Partial molar (Acute) 03/04/22. Will repeat hCG 03/2022, 04/2022. Encounter for Depo-Provera contraception (Acute) Contraception (Acute) Recurrent loss (Acute) Missed (Acute) 02/12/22 at 9w EGA by CRL. D&C at 11w EGA. E. coli UTI (Acute) History of miscarriage, currently (Acute) Headache (Acute) Upper respiratory infection (Acute) Obstructive sleep apnea (Chronic) Migraine aura without headache (Acute) Snoring (Acute 05/27/15) Medical History (Updated 12/25/22 @ 09:18 by Ulises Manley MD) Adjustment disorder Migraine Missed 9w EGA. D&C 09/03/21. Surgical History H/O dilation and curettage 09/03/21. for missed ab at 9w EGA. History of oral surgery Family History Mother Cervical cancer Social History Smoking/Tobacco Use Status: Never Smoking risk assessment performed?: Yes Alcohol Intake: never Drug use: Never Substance use type: does not use Household members: other Details: BF - Noah Number of Children: 0 Education Level: high school Do you feel safe at home: Yes Do you feel safe in your relationship?: Yes Female Reproductive History Menstrual control method: none History History 2 Para 0 Hx # Term Pregnancies 0 Multiple births 0 Hx # Pregnancies 0 Ectopic pregnancies 0 AB induced 0 Hx Number of Living Children 0 AB spontaneous 2 Past Pregnancies Del. Date GA/Weeks # Preg Succ Route Wgt Sex Labor Lgth Anesthesia Location [facility] 09/03/21 9 Arti Dutton 02/22/[address] Spencer Delivery Date: 09/03/21 Last Updated by: Lexi Donato LPN missed ab Delivery Date: 02/22/22 Last Updated by: Lexi Donato LPN missed ab Exam Narrative Exam Narrative: Physical Examination General: alert, awake, cooperative, resting comfortably, no acute distress HEENT: normocephalic, atraumatic; PERRL, EOM intact, conjunctiva normal; no nasal discharge; moist mucous membranes, oral and pharyngeal mucosa normal, tolerating secretions Neck: supple, trachea midline; full ROM Chest: normal to inspection Respiratory: normal respiratory effort, speaking in full sentences, clear to auscultation, no wheezing, rales or rhonchi Cardiac: regular rate, regular rhythm, S1S2 intact, no murmurs rubs or gallops GI: abdomen soft, non-tender, non-distended; no palpable mass or hepatosplenomegaly Back: No midline spinal tenderness Skin: no lesions, rashes or trauma appreciated Neuro: AAOx3, normal speech, moving all extremities Extremities: No peripheral edema Psych: Appropriate mood and affect Course Vital Signs Vital signs: Vital Signs Temperature 36.9 C 12/25/22 07:20 Pulse 94 H 12/25/22 07:20 Respiratory Rate 16 12/25/22 07:20 Blood Pressure 104/57 L 12/25/22 07:20 Pulse Oximetry 98 12/25/22 07:20 Temperature 36.9 C 12/25/22 07:20 Temperature Source Tympanic 12/25/22 07:20 Pulse 94 H 12/25/22 07:20 Respiratory Rate 16 12/25/22 07:20 Blood Pressure 104/57 L 12/25/22 07:20 Pulse Oximetry 98 12/25/22 07:20 Oxygen Delivery Method Room Air 12/25/22 07:20 Oxygen Flow Rate 0 12/25/22 07:20 Pain Level 8 12/25/22 07:20 Lab/Test Results Lab/Test Results: POC- Test(urine) Negative
[2022-12-25 08:14] LABS: Bilirubin Negative (Negative); Blood Trace-lysed (Negative); Clarity Turbid (Clear); Glucose Negative (Negative); Ketones Negative (Negative); Leukocyte Esterase Moderate (Negative); Nitrite Negative (Negative); Specific Gravity >= 1.030 (1.005-1.025); pH 5.5 (5-8)
[2022-12-25 08:23] LABS: C & S Indicated? No/Sq. Contamination; Epithelial Cells Many HPF (Negative); WBC >50 HPF (0-5)
[2022-12-25] MEDS: Ketorolac 15 MG/ML VIAL IVP (08:32)
[2022-12-25 08:40] LABS: Abs Immature Grans 0.02 10^3/uL (0.0-0.06); Absolute Basophil Count 0.06 10^3/uL (0.0-0.2); Absolute Eosinophil Count 0.23 10^3/uL (0.0-0.7); Absolute Lymphocyte Count 2.64 10^3/uL (1.2-3.4); Absolute Neutrophil Count 4.29 10^3/uL (1.2-6.7); Basophils % 0.8; HCT 40.6 % (36.0-46.0); HGB 13.7 g/dL (11.2-15.7); Immature Grans % 0.3; Lymphocytes % 34.6; MCH 30.7 pg (27.0-33.0); MCHC 33.7 % (32.0-36.0); MCV 91 fL (80-95); MPV 8.5 fL (8.0-11.0); Monocytes % 5.2; Neutrophils % 56.1; Platelet Count 309 10^3/uL (130-400); RBC 4.46 10^6/uL (3.93-5.22); RDW 11.8 % (11.7-14.6); RDW-SD 39.5 fL; WBC 7.64 10^3/uL (4.4-10.8)
[2022-12-25 08:52] LABS: ALT 13 U/L (14-59); AST 8 U/L (15-37); Albumin 3.9 g/dL (3.4-5.0); Alkaline Phosphatase 69 U/L (46-116); Anion Gap 9.1 mmol/L (3-11); BUN 7 mg/dL (7-18); Bilirubin, Total 0.3 mg/dL (0.2-1.0); CO2 26.9 mmol/L (21.0-32.0); CREATININE 0.9 mg/dL (0.55-1.02); Calcium 8.9 mg/dL (8.5-10.1); Chloride 107 mmol/L (98-107); Estimated GFR 93.86 (mL/min/1.73m2); Glucose 90 mg/dL (74-106); Potassium 3.7 mmol/L (3.5-5.1); Sodium 143 mmol/L (136-145); Total Protein 7.4 g/dL (6.4-8.2)
[2022-12-25 09:07] LABS: D-Dimer 126 ng/mlFEU (<500)
[2022-12-25] MEDS: Cefpodoxime 200 MG TAB PO (09:19)
== END 2022-12-25 09:32 | disposition home or self-care (01) ==
PROVIDERS: Emergency Provider Emergency Medicine; PCP Family Medicine
DX: N39.0 Urinary tract infection, site not specified (principal); R04.0 Epistaxis
CPT/HCPCS: 80053; 81025; 93005; 96374; 99284; 71046; 81003; 81015; 85025; 85379; 93010; J1885

== ENCOUNTER 2023-02-01 13:33 | Emergency (ER) | payer MEDICAID, SELFPAY ==
[2023-02-01 13:37] VITALS: BP 102/78; PULSE 99; RESP 15; TEMP 37.1; O2SAT 100
[2023-02-01 14:56] LABS: Bilirubin Negative (Negative); Blood Negative (Negative); Clarity Sl Cloudy (Clear); Glucose Negative (Negative); Ketones Trace mg/dL (Negative); Leukocyte Esterase Small (Negative); Nitrite Negative (Negative); Specific Gravity >= 1.030 (1.005-1.025); pH 5.5 (5-8)
[2023-02-01 15:06] LABS: Bacteria Rare HPF (Negative); C & S Indicated? No/Sq. Contamination; Casts 0-2 Hyaline LPF (Negative); Crystals Rare Calcium Oxalate HPF (Negative); Epithelial Cells Many HPF (Negative); Mucus Moderate (Negative); RBC Negative HPF (0-2)
--- NOTE | 2023-02-01 15:45 | W.ED.GENAD ---
Discharge Plan Disposition Patient Disposition: Home Condition: Good Discharge Details Clinical Impression: Abdominal pain Primary Care Provider: Jamar Trivedi ED Provider: Beata Mcdonald Home Meds and New Rx's Prescriptions: Continued ibuprofen 600 mg tablet 600 mg PO Q6H PRN (Reason: pain) Qty: 30 1RF Patient Comments: Pt states not taking ML 02/01/23 cefpodoxime 200 mg tablet 200 mg PO BID Patient Comments: Patient stated that she is currently on antibiotic. Pt states not taking ML 02/01/23 Rx Instructions: must administer with a meal/food medroxyprogesterone [Depo-Provera] 150 mg/mL syringe 150 mg IM Q12W Qty: 1 4RF acetaminophen 500 mg Tablet 1,000 mg PO PRN PRN Patient Comments: Pt states not taking ML 02/01/23 fluoxetine 20 mg capsule 20 mg PO DAILY Patient Comments: TAKE 1 CAPSULE BY MOUTH ONCE DAILY albuterol sulfate 90 mcg/actuation aerosol powdr breath activated 2 inh inhalation Q4H PRN (Reason: shortness of breath or wheezing) Qty: 1 0RF benzonatate 200 mg capsule 200 mg PO TID PRN (Reason: cough) Qty: 30 0RF Patient Comments: Pt states not taking ML 02/01/23 Discharge Instructions Instructions: Abdominal Pain (ED) Additional Instructions: As we discussed, your labs and exam are reassuring here today. Please continue to encourage hydration. Please try to eat a bland and easy digest diet such as bananas, rice, applesauce, toast. Please keep a journal of your recurrent abdominal symptoms to see if there is any specific triggers. As we discussed, I am concerned that this may be associated with your chronic marijuana usage causing post recurrent abdominal pain. Please call your primary care provider to schedule follow-up appointment in 1 week. If you develop any fever/chills, increased pain, inability stay hydrated or other new/worsening symptom please seek care urgently once again. Stand Alone Forms: Work Release Referrals: Jamar Trivedi [Primary Care Provider] - Discharge Data Discharge Date/Time-TO BE ENTERED AT DEPARTURE: 02/01/23 18:05 Medical Decision Making Patient is a pleasant 22 year old female, pmh of missed , miscarriage, AKILAH, migraine, presenting today with c/c of recurrent abdominal pain. States that this began yesterday and comes in waves of diffuse pain. Had one episode of emesis today which was concerning as it had soem red tints. She states she did eat spaghetti with red sauce for dinner last night which was last meal prior to episode. She is concerned that she may have tasted blood. Denies change in bowel habits. States she has been here several times for similar pain. No previous abdominal surgeries but has had 2 D&Cs. Denies change in vaginal discharge or vaginal pain. States she typically gets cramps prior to her depo shot which she is due for. Had long meses last month, unclear of exact time frame. States she smokes marijuana daily for sleep. Hot showers improve her pain. No change with eating although only had BBQ chips today. On exam, patient appears nontoxic. She is resting comfortably. Abdomen is indicated to be diffusely tender but no pain with palpation, no peritoneal findings. Good bowel sounds. Lungs clear, normal cardiac exam, moist mucus membranes. Differential is fairly broad. I do not see indication of surgical abdomen. No peritoneal findings. More concerning for viral or bacterial infection, although no diarrhea or signficant vomiting. No recent abx. Considered cannaboid induced hyperemesis and discussed with patient but she declines treatment such as topical options for this. negative. UA contaminated, not consistent with infection. Labs reviewed. No leukocytosis. Stable H&H. CMP without significant abnormality. She not having any significant left upper quadrant pain, epigastric pain or pain rating into the back, no significant alcohol intake. History exam not consistent with pancreatitis. Do not see indication for imaging at this time as she has no focal tenderness or peritoneal findings. Patient reporting that family members have COVID and flu. Tested today which is negative. Encourage that she continue to think about her marijuana use that this may be causing her recurrent episodes of severe diffuse abdominal discomfort as well as nausea and occasional vomiting. She has declined all analgesics while here as well as antiemetics. Return precautions discussed. Advise follow-up with primary care in 1 week. Supportive care discussed. All of her questions and concerns were addressed and she is agreement this plan. HPI General Date/Time Provider Initiated Documentation: 02/01/23 14:27. Limitations to Documentation: no limitations. Information obtained by: patient, family and RN notes reviewed. History of Present Illness 22 year old F presents to the emergency department with the chief complaint of diffuse abdominal pain, described as severe, with intensity rated at 8. Quality is described as stabbing, and is localized to the abdomen. Patient reports no radiation. Patient started experiencing this day(s) and it has been intermittent. No relieving factors improve symptom(s), No exacerbating factors reported . Patient notes loss of appetite, malaise and nausea/vomiting; denies chest pain, cough, fever/chills, rash and shortness of breath. Patient did receive the following treatments prior to arrival, none Related Data Home Medications Medication Instructions Recorded Confirmed acetaminophen 500 mg tablet 1,000 mg PO PRN PRN 09/03/21 01/06/23 ibuprofen 600 mg tablet 600 mg PO Q6H PRN pain #30 tabs 02/18/22 01/06/23 albuterol sulfate 90 mcg/actuation 2 inh inhalation Q4H PRN shortness 06/16/22 02/01/23 breath activated powder inhaler of breath or wheezing #1 ea benzonatate 200 mg capsule 200 mg PO TID PRN cough #30 caps 06/16/22 01/06/23 fluoxetine 20 mg capsule 20 mg PO DAILY 06/16/22 02/01/23 medroxyprogesterone 150 mg/mL 150 mg IM Q12W #1 mL 10/27/22 02/01/23 intramuscular syringe (Depo-Provera) cefpodoxime 200 mg tablet 200 mg PO BID 01/06/23 Previous Rx's Medication Instructions Recorded ibuprofen 600 mg tablet 600 mg PO Q6H PRN pain #30 tabs 02/18/22 albuterol sulfate 90 mcg/actuation 2 inh inhalation Q4H PRN shortness 06/16/22 breath activated powder inhaler of breath or wheezing #1 ea benzonatate 200 mg capsule 200 mg PO TID PRN cough #30 caps 06/16/22 medroxyprogesterone 150 mg/mL 150 mg IM Q12W #1 mL 10/27/22 intramuscular syringe (Depo-Provera) Allergies Allergy/AdvReac Type Severity Reaction Status Date / Time No Known Allergies Allergy Verified 02/01/23 16:31 General Stated Complaint: Abd Prob ARMANI: 3 Review of Systems Constitutional Constitutional: Reports as per HPI, Denies chills, Denies fatigue and Denies fever(s) Cardiovascular Cardiovascular: Reports as per HPI, Denies chest pain and Denies dyspnea Respiratory Respiratory: Reports as per HPI, Denies cough and Denies dyspnea Gastrointestinal Gastrointestinal: Reports as per HPI Musculoskeletal Musculoskeletal: Reports as per HPI and Denies back pain Integumentary/Breasts Skin/Breast: Reports as per HPI and Denies rash Neurologic Neurologic: Reports as per HPI Endocrine Endocrine: Denies fatigue PFSH All Active Problems (Updated 02/01/23 @ 17:43 by JORDIN Lazo) Abdominal pain (Acute) Exposure to chlamydia (Acute) Partial molar (Acute) 03/04/22. Will repeat hCG 03/2022, 04/2022. Encounter for Depo-Provera contraception (Acute) Contraception (Acute) Recurrent loss (Acute) Missed (Acute) 02/12/22 at 9w EGA by CRL. D&C at 11w EGA. E. coli UTI (Acute) History of miscarriage, currently (Acute) Headache (Acute) Upper respiratory infection (Acute) Obstructive sleep apnea (Chronic) Migraine aura without headache (Acute) Snoring (Acute 05/27/15) Medical History (Updated 02/01/23 @ 17:43 by JORDIN Lazo) Adjustment disorder Migraine Missed 9w EGA. D&C 09/03/21. Surgical History H/O dilation and curettage 09/03/21. for missed ab at 9w EGA. History of oral surgery Family History Mother Cervical cancer Social History Smoking/Tobacco Use Status: Never Smoking risk assessment performed?: Yes Alcohol Intake: never Drug use: Daily Substance use type: marijuana Household members: other Details: - Noah Number of Children: 0 Education Level: high school Do you feel safe at home: Yes Do you feel safe in your relationship?: Yes Female Reproductive History Menstrual control method: none History History 2 Para 0 Hx # Term Pregnancies 0 Multiple births 0 Hx # Pregnancies 0 Ectopic pregnancies 0 AB induced 0 Hx Number of Living Children 0 AB spontaneous 2 Past Pregnancies Del. Date GA/Weeks # Preg Succ Route Wgt Sex Labor Lgth Anesthesia Location Prov Complic 09/03/21 9 Arti [place] 02/22/[address] Spencer Delivery Date: 09/03/21 Last Updated by: Lexi Donato LPN missed ab Delivery Date: 02/22/22 Last Updated by: Lexi Donato LPN missed ab Exam Const General: cooperative, healthy appearing, comfortable, no acute distress and well developed Nutritional Appearance: average body habitus and well nourished Orientation: alert and awake [facility] Head: normal to inspection Mouth: moist mucous membranes Resp Effort & Inspection: normal respiratory effort, able to speak in complete sentences and no respiratory distress Auscultation: clear to auscultation bilaterally, no rales, no rhonchi and no wheezes Cardio Rate: regular rate Rhythm: regular rhythm Heart Sounds: S1 normal and S2 normal GI Inspection: normal to inspection Palpation: soft, no hepatosplenomegaly, not firm, no guarding, no hernias, no masses, not rigid, nontender and No ascites Percussion: normal to percussion Auscultation: normal bowel sounds Back/Spine/Pelvis Back: no CVA tenderness Skin General skin exam: no rashes or lesions noted Trauma: no lacerations or abrasions Neuro General: patient alert and patient awake Cognition: normal cognition Speech: speech normal Gait: normal gait Psych Appearance: grossly normal and well kempt Mental Status: mental status grossly normal Speech and Movement: speech and movement normal Course Vital Signs Vital signs: Vital Signs Temperature 37.1 C 02/01/23 13:37 Pulse 99 H 02/01/23 13:37 Respiratory Rate 15 02/01/23 13:37 Blood Pressure 102/78 02/01/23 13:37 Pulse Oximetry 100 02/01/23 13:37 Temperature 37.1 C 02/01/23 13:37 Temperature Source Temporal Artery Scan 02/01/23 13:37 Pulse 99 H 02/01/23 13:37 Respiratory Rate 15 02/01/23 13:37 Blood Pressure 102/78 02/01/23 13:37 Blood Pressure Position Sitting 02/01/23 13:37 Pulse Oximetry 100 02/01/23 13:37 Oxygen Delivery Method Room Air 02/01/23 13:37 Oxygen Flow Rate 0 02/01/23 13:37 Pain Level 6 02/01/23 15:40 Lab/Test Results Lab/Test Results: Laboratory Tests Range/Units 02/01/23 14:40 Urine Color (Yellow) Yellow Urine Clarity (Clear) Sl Cloudy Urine pH (5-8) 5.5 Ur Specific [place] (1.005-1.025) >= 1.030 H Urine Protein (Negative) mg/dL 30 H Urine Ketones (Negative) mg/dL Trace H Urine Blood (Negative) Negative Urine Nitrite (Negative) Negative Urine Bilirubin (Negative) Negative Urine Urobilinogen (Up to 0.2) mg/dL 1.0 H Ur Leukocyte Esterase (Negative) Small H Urine RBC (0-2) HPF Negative Urine WBC (0-5) HPF 5-10 Ur Epithelial Cells (Negative) HPF Many Urine Crystals (Negative) HPF Rare Calcium Oxalate Urine Bacteria (Negative) HPF Rare Urine Casts (Negative) LPF 0-2 Hyaline Urine Mucus (Negative) Moderate Ur Culture Indicated? No/Sq. Contamination Urine Glucose (Negative) mg/dL Negative POC- Test(urine) Negative
[2023-02-01 16:10] LABS: Abs Immature Grans 0.04 10^3/uL (0.0-0.06); Absolute Basophil Count 0.08 10^3/uL (0.0-0.2); Absolute Eosinophil Count 0.35 10^3/uL (0.0-0.7); Absolute Lymphocyte Count 4.57 10^3/uL (1.2-3.4); Absolute Monocyte Count 0.57 10^3/uL (0.1-0.8); Absolute Neutrophil Count 4.33 10^3/uL (1.2-6.7); Basophils % 0.8; Eosinophils % 3.5; HCT 41.6 % (36.0-46.0); HGB 14.2 g/dL (11.2-15.7); Immature Grans % 0.4; MCH 30.9 pg (27.0-33.0); MCHC 34.1 % (32.0-36.0); MCV 91 fL (80-95); MPV 8.3 fL (8.0-11.0); Monocytes % 5.7; Neutrophils % 43.6; Platelet Count 413 10^3/uL (130-400); RBC 4.59 10^6/uL (3.93-5.22); RDW 12.1 % (11.7-14.6); WBC 9.94 10^3/uL (4.4-10.8)
[2023-02-01] MEDS: Lactated Ringers 1,000 ML 1000 ML IV (16:19)
[2023-02-01 16:22] LABS: ALT 13 U/L (14-59); AST 11 U/L (15-37); Albumin 4.6 g/dL (3.4-5.0); Alkaline Phosphatase 83 U/L (46-116); Anion Gap 7.9 mmol/L (3-11); BUN 7 mg/dL (7-18); Bilirubin, Total 0.3 mg/dL (0.2-1.0); CO2 30.1 mmol/L (21.0-32.0); CREATININE 0.8 mg/dL (0.55-1.02); Calcium 9.7 mg/dL (8.5-10.1); Chloride 102 mmol/L (98-107); Estimated GFR 108.11 (mL/min/1.73m2); Glucose 84 mg/dL (74-106); Magnesium 2.3 mg/dL (1.8-2.4); Potassium 3.4 mmol/L (3.5-5.1); Sodium 140 mmol/L (136-145); Total Protein 8.8 g/dL (6.4-8.2)
[2023-02-01 17:55] VITALS: BP 97/64; PULSE 77; RESP 15; O2SAT 100
== END 2023-02-01 18:05 | disposition home or self-care (01) ==
PROVIDERS: Emergency Medicine; Emergency Provider Physician Assistant; PCP Family Medicine
DX: R10.84 Generalized abdominal pain (principal); F12.90 Cannabis use, unspecified, uncomplicated
CPT/HCPCS: 36415; 80053; 81025; 87426; 96360; 99283; 81003; 81015; 83735; 85025; 99282

== ENCOUNTER 2023-06-06 15:34 | Emergency (ER) | payer MEDICAID, SELFPAY ==
[2023-06-06 15:38] VITALS: BP 118/52; PULSE 106; RESP 16; TEMP 37.4; O2SAT 98
[2023-06-06 16:02] VITALS: BP 118/52; PULSE 106; RESP 16; TEMP 37.4; O2SAT 98
--- NOTE | 2023-06-06 16:16 | ED.GENADUL_ITS ---
HPI General Mode of arrival: ambulatory . Date/Time Provider Initiated Documentation: 06/06/23 15:40 . Limitations to Documentation: no limitations . Information obtained by: patient and RN notes reviewed . History of Present Illness 22 year old F presents to the emergency department with the chief complaint of sore throat, described as moderate, Quality is described as aching, Patient started experiencing this week(s) (1) and it has been constant. No relieving factors improve symptom(s), No exacerbating factors reported . Patient did receive the following treatments prior to arrival, NSAID Related Data Home Medications Medication Instructions Recorded Confirmed acetaminophen 500 mg tablet 1,000 mg PO PRN PRN 09/03/21 06/06/23 ibuprofen 600 mg tablet 600 mg PO Q6H PRN pain #30 tabs 02/18/22 06/06/23 albuterol sulfate 90 mcg/actuation 2 inh inhalation Q4H PRN shortness 06/16/22 06/06/23 breath activated powder inhaler of breath or wheezing #1 ea fluoxetine 20 mg capsule 20 mg PO DAILY 06/16/22 06/06/23 methylprednisolone 4 mg tablets in See Rx Instructions PO .COMPLEX 06/06/23 a dose pack (Medrol (Rah)) #21 dose pk Previous Rx's Medication Instructions Recorded ibuprofen 600 mg tablet 600 mg PO Q6H PRN pain #30 tabs 02/18/22 albuterol sulfate 90 mcg/actuation 2 inh inhalation Q4H PRN shortness 06/16/22 breath activated powder inhaler of breath or wheezing #1 ea methylprednisolone 4 mg tablets in See Rx Instructions PO .COMPLEX 06/06/23 a dose pack (Medrol (Rah)) #21 dose pk Allergies Allergy/AdvReac Type Severity Reaction Status Date / Time No Known Allergies Allergy Verified 06/06/23 15:41 General Stated Complaint: Sorethroat ARMANI: 4 Review of Systems Constitutional Constitutional: Denies chills, Denies fever(s), Denies headache(s), Reports malaise and Denies poor appetite ENT Ears, Nose, Mouth, and Throat: Denies change in voice, Denies dysphagia, Denies otalgia, Denies headache(s), Denies hoarseness, Denies lip swelling, Denies mouth lesions, Reports nasal congestion, Reports neck mass, Reports odynophagia, Reports sore throat, Denies throat swelling and Denies tongue swelling Cardiovascular Cardiovascular: Denies chest pain Respiratory Respiratory: Denies chest congestion and Reports cough Gastrointestinal Gastrointestinal: Denies dysphagia and Reports odynophagia Neurologic Neurologic: Denies headache(s) Allergic/Immunologic Allergic/Immunologic: Denies lip swelling, Denies throat swelling and Denies tongue swelling Exam Const General: cooperative, healthy appearing, comfortable, no acute distress and not ill appearing Orientation: alert, awake and oriented x3 HENMT Head: normal to inspection and normocephalic Ears: hearing grossly normal bilaterally, external ears normal, TM's normal bilaterally, mastoids normal and EAC abnormal excessive cerumen General nose exam: external nose normal and nares normal Face and sinus: normal facial exam and sinuses nontender Mouth: oral mucosae normal, lip normal, tongue normal, no audible dysphonia, no drooling and no trismus Throat: uvula midline, abnormal tonsil bilaterally erythema and hypertrophy 2+, no peritonsillar masses, uvula not displaced and no uvular edema Neck Neck: normal visual inspection, full ROM, no meningeal signs and lymphadenopathy (Anterior cervical) Resp Effort & Inspection: normal respiratory effort, able to speak in complete sentences and no stridor Auscultation: clear to auscultation bilaterally Cardio Rate: regular rate Rhythm: regular rhythm Heart Sounds: S1 normal and S2 normal Skin General skin exam: no rashes or lesions noted Course Vital Signs Vital signs: Vital Signs Temperature 37.4 C 06/06/23 15:38 Pulse 106 H 06/06/23 15:38 Respiratory Rate 16 06/06/23 15:38 Blood Pressure 118/52 L 06/06/23 15:38 Pulse Oximetry 98 06/06/23 15:38 Temperature 37.4 C 06/06/23 16:02 Pulse 106 H 06/06/23 16:02 Respiratory Rate 16 06/06/23 16:02 Respiratory Effort Normal, Non-Labored 06/06/23 16:02 Blood Pressure 118/52 L 06/06/23 16:02 Pulse Oximetry 98 06/06/23 16:02 Oxygen Delivery Method Room Air 06/06/23 16:02 Oxygen Flow Rate 0 06/06/23 16:02 Lab/Test Results Lab/Test Results: 06/06/23 16:15 Tonsil - Not Specified Group A Streptococcus Culture - Pending 06/06/23 15:47 Tonsil - Not Specified Group A Streptococcus Culture - Pending POC Strep Test-SWATHI(Rapid) Start: 06/06/23 15:43 Freq: .Rapid Strep Test Status: Active Protocol: Document 06/06/23 15:56 KB (Rec: 06/06/23 15:56 KB [id number]) Strep test-SWATHI(Rapid)-POC POC-Strep test-SWATIH (Rapid) Negative POC-Strep test-SWATHI (Rapid) Negative Medical Decision Making Patient presenting to the emergency department for chief complaint of sore throat. Patient reports that she has had symptoms for approximately 1 week. She does report that she was exposed to strep throat and has history of recurrent strep infections. Patient denies any fever or chills, rash, chest pain or abdominal pain. Does state lingering cough and nasal congestion that also accompanied the beginning of symptoms. No other significant contributing past medical history. Physical exam shows anterior cervical lymphadenopathy, tonsillar erythema and hypertrophy with minimal to no exudate. There is audible nasal congestion otherwise noncontributory exam. Review of vital signs does show tachycardia but upon auscultation patient did not appear tachycardic. Exam consistent with Pharyngitis. no signs of deep neck space infection ( Retropharyngeal abscess, Aden's angina, Parapharyngeal space infection, Vivian tonsillar Abscess (CHICKEN STUFFER)) or Epiglottitis. Pt non toxic and stable. Rapid strep swab was performed and patient negative and strep culture sent. Given initial symptoms were accompanied with other upper respiratory infectious symptoms and negative swab I do have high suspicion of this being viral etiology. Will treat patient with steroids pending results of strep culture. After discussion of diagnosis and plan of care patient has no further needs, questions, or concerns and states clear understanding to return to the emergency department for any worsening symptoms. This documentation was generated using liveBooksation system, please disregard any oddities of phrase or misspellings. Quality:SDOH Health Related Social Needs: No Data to Display PFSH All Active Problems (Updated 06/06/23 @ 16:23 by Miguel Gonzales NP) URI (upper respiratory infection) (Acute) Pharyngitis (Acute) Exposure to chlamydia (Acute) Partial molar (Acute) 03/04/22. Will repeat hCG 03/2022, 04/2022. Encounter for Depo-Provera contraception (Acute) Contraception (Acute) Recurrent loss (Acute) Missed (Acute) 02/12/22 at 9w EGA by CRL. D&C at 11w EGA. E. coli UTI (Acute) History of miscarriage, currently (Acute) Headache (Acute) Upper respiratory infection (Acute) Obstructive sleep apnea (Chronic) Migraine aura without headache (Acute) Snoring (Acute 05/27/15) Medical History Missed 9w EGA. D&C 09/03/21. Adjustment disorder Migraine Surgical History H/O dilation and curettage 09/03/21. for missed ab at 9w EGA. History of oral surgery Family History Mother Cervical cancer Social History Smoking/Tobacco Use Status: Never Smoking risk assessment performed?: Yes Alcohol Intake: never Drug use: Daily Substance use type: marijuana Household members: other Details: - Noah Number of Children: 0 Education Level: high school Do you feel safe at home: Yes Do you feel safe in your relationship?: Yes Female Reproductive History Menstrual Date of last menstrual period: 05/16/23 control method: none History History 2 Para 0 Hx # Term Pregnancies 0 Multiple births 0 Hx # Pregnancies 0 Ectopic pregnancies 0 AB induced 0 Hx Number of Living Children 0 AB spontaneous 2 Past Pregnancies Del. Date GA/Weeks # Preg Succ Route Wgt Sex Labor Lgth Anesth esia Location Prov [facility] 09/03/21 9 Arti Castanon or 02/22/[address] Spencer Delivery Date: 09/03/21 Last Updated by: Lexi Donato LPN missed ab Delivery Date: 02/22/22 Last Updated by: Lexi Donato LPN missed ab Discharge Plan Disposition Patient Disposition: Home Discharge Details Clinical Impression: Pharyngitis, URI (upper respiratory infection) Primary Care Provider: Jamar Trivedi ED Provider: Miguel Gonzales Home Meds and New Rx's Prescriptions: New methylprednisolone [Medrol (Rah)] 4 mg tablets,dose pack See Rx Instructions .ROUTE .COMPLEX Qty: 21 0RF Rx Instructions: orally per package directions Continued ibuprofen 600 mg tablet 600 mg PO Q6H PRN (Reason: pain) Qty: 30 1RF Patient Comments: Pt states not taking ML 02/01/23 acetaminophen 500 mg Tablet 1,000 mg PO PRN PRN Patient Comments: Pt states not taking ML 02/01/23 fluoxetine 20 mg capsule 20 mg PO DAILY Patient Comments: TAKE 1 CAPSULE BY MOUTH ONCE DAILY albuterol sulfate 90 mcg/actuation aerosol powdr breath activated 2 inh inhalation Q4H PRN (Reason: shortness of breath or wheezing) Qty: 1 0RF Discharge Instructions Instructions: Pharyngitis (ED), Upper Respiratory Infection (ED) Additional Instructions: You may continue use [id number] medications that match your symptoms. Return immediately to the emergency department for any new or significant worsening of symptoms If your strep culture results are positive we will contact you and start an antibiotic. If you are not showing signs of improvement in the next week please follow-up primary care provider for recheck Referrals: Jamar Trivedi [Primary Care Provider] - (As needed for reassessment) Discharge Data Discharge Date/Time-TO BE ENTERED AT DEPARTURE: 06/06/23 16:42
[2023-06-06 16:33] VITALS: BP 110/66; PULSE 86; RESP 16; O2SAT 99
[2023-06-06] MEDS: Dexamethasone 10 MG/ML VIAL PO (16:33)
--- NOTE | 2023-06-07 14:22 | NUR.NOTE ---
Acessed Pt chart to see if Pt was prescribed antibiotics for the specimen results paper.
--- NOTE | 2023-06-09 12:39 | W.ED.FU ---
Follow Up Plan: Patient tested positive for group C strep, penicillin called into [facility]
== END 2023-06-06 16:42 | disposition home or self-care (01) ==
PROVIDERS: Emergency Provider Nurse Practitioner Family; PCP Family Medicine
DX: J02.9 Acute pharyngitis, unspecified (principal); J06.9 Acute upper respiratory infection, unspecified
CPT/HCPCS: 87880; 99283; 87081; J1100

== ENCOUNTER → 2023-09-21 01:55 | Outpatient (CLI) | payer MEDICAID, SELFPAY ==
--- NOTE | 2023-09-21 07:15 | DI.US_ITS ---
Exam(s) US BREAST LT COMPLETE EXAM: US BREAST LT COMPLETE CLINICAL HISTORY: Breast tenderness, over areola,n64.4,mastodynia. TECHNIQUE: Complete ultrasound of the LEFT breast was performed including all 4 quadrants, the retro areolar region, and the ipsilateral axilla. COMPARISON: This 23-year-old patient complains of nonspecific pain in her left breast for the past 2 weeks. She claims that she may have a lump at the 12 o'clock position. Describes it as approximate ly the size of a ping-pong ball. Denies nipple discharge. Has nipple piercings and tattoos but thes e were performed over 3 years ago and symptoms are only for past 2 weeks. She denies breast infectio n and fever. Not breast-feeding. FINDINGS: There is no evidence of solid or significant cystic lesions in all 4 quadrants of the left breast. S yaw over her area region of interest approximately 12 o'clock position reveals no significant foc al findings. Scanning of the left axilla is negative for adenopathy. IMPRESSION: Negative complete left breast ultrasound BI-RADS Category 1 - Negative Breast Density - Category C - Heterogeneously dense Breast density Category C or D implies that the patient has dense breast tissue. Dense breast tissue can make it harder to find cancer on a mammogram. Dense breast tissue is also associated with an incr eased risk of breast cancer. This information about the result of the mammogram report was provided to the patient to raise their awareness. Use this report when you speak with the patient about their risks for breast cancer, which includes their family history. At that time, you may recommend additional screening tests (Ultrasoun d or MRI) as these tests may add significant information. A negative radiographic report should not delay biopsy if a dominant or clinically suspicious mass is present. Up to ten percent of cancers are not identified on mammography. A negative report may reinforce clinical impression. Adenosis and dense breasts may obscure an underlying neoplasm. False positive reports average 6 to 10%. Patient will receive a letter notifying them of these results.
== END ==
PROVIDERS: PCP Family Medicine; Visit Provider Nurse Practitioner Women's Health
DX: N64.4 Mastodynia (principal)
CPT/HCPCS: 76642

== ENCOUNTER 2024-04-11 10:59 | Emergency (ER) | payer MEDICAID, SELFPAY ==
[2024-04-11 11:03] VITALS: BP 118/79; PULSE 101; RESP 20; TEMP 36.7; O2SAT 99
[2024-04-11 11:07] VITALS: BP 118/79; PULSE 101; RESP 20; TEMP 36.7; O2SAT 99
--- NOTE | 2024-04-11 11:14 | ED.GENADUL_ITS ---
Discharge Plan Disposition Patient Disposition: Home Discharge Details Clinical Impression: Pharyngitis, streptococcal, acute Primary Care Provider: Jamar Trivedi ED Provider: Jamar Marie Home Meds and New Rx's Prescriptions: New penicillin V potassium 500 mg tablet 500 mg PO BID 10 Days Qty: 20 0RF Continued ibuprofen 600 mg tablet 600 mg PO Q6H PRN (Reason: pain) Qty: 30 1RF Patient Comments: Pt states not taking ML 02/01/23 acetaminophen 500 mg Tablet 1,000 mg PO PRN PRN Patient Comments: Pt states not taking ML 02/01/23 fluoxetine 20 mg capsule 20 mg PO DAILY Patient Comments: TAKE 1 CAPSULE BY MOUTH ONCE DAILY albuterol sulfate 90 mcg/actuation aerosol powdr breath activated 2 inh inhalation Q4H PRN (Reason: shortness of breath or wheezing) Qty: 1 0RF Discharge Instructions Instructions: Strep throat in adults Additional Instructions: You are seen in the emergency department for your sore throat. You are found have a strep infection for which you should take antibiotics as directed. Please return to the emergency department if you develop difficulty swallowing increasing pain or if you pass out. For your pain please take medications as follows: 1. Take acetaminophen (Tylenol), 500 mg tabs every 6 hours [2. Take ibuprofen (Advil), 400 mg every 6 hours.] Stand Alone Forms: Work Release HPI General Date/Time Provider Initiated Documentation: 04/11/24 11:14 . HPI Narrative: MDM This is an overall very well-appearing initially tachycardic but normothermic 23-year-old female with strep pharyngitis for which patient will receive dexamethasone and penicillin and discharged with empiric trial of expectant outpatient management. Patient requested a work note which I provided. No pain out of proportion to suggest necrotizing soft tissue infection. Good range of motion in the neck so my suspicion for retropharyngeal abscess is low. Uvula midline so doubt peritonsillar abscess. Handling secretions so my suspicion is low for epiglottitis. Immunized and nontoxic so doubt bacterial tracheitis. No cough to suggest pneumonia. Patient denies history of recent oral sex so I am not suspicious for atypical infections chlamydia nor gonococcal pharyngitis. No nuchal rigidity to suggest meningitis. Patient I discussed that she should return to the ED if she develops worsening pain could not eat or drink as result of pain or had any other concerns. She understood her return indications. 12:15 PM COVID influenza negative. Patient's repeat blood pressure was slightly low however given her weight at 52 kg and her age this is reassuring. I am not concerned for sepsis and feel that the risks of blood cultures and broad- spectrum antibiotics outweigh the benefits. HPI This is a 23-year-old female up-to-date with immunizations arriving to emergency department via private vehicle in the setting of a sore throat. Patient notes that she has had a painful productive cough for the past 4 days. She has noticed over the past day she has had a change in her voice and some difficulty swallowing. She denies syncope. She denies sick contacts. She denies any oral sex recently. She is a daily smoker but denies routine ethanol and illicits. She takes outpatient fluoxetine. She has had prior strep infections during childhood. Denies any recent falls. Exam General: Well-appearing in no acute distress speaking in complete sentences. Head: Normocephalic, atraumatic. Eye: Extraocular eye movements intact. No conjunctival injection. No scleral icterus. Ear, nose, mouth, throat: Bilateral tonsillar exudates with tonsillar erythema. Uvula midline. Normal voice, handling secretions normally. Neck: Trachea midline. Good range of motion in neck. Cardiovascular: Well-perfused distal extremities. Respiratory: Nonlabored respiration. Gastrointestinal: Nondistended abdomen. Musculoskeletal: No edema. Moving all 4 extremities spontaneously. Skin: Normal for age and race, grossly normal temperature and turgor. No acute rash. Neurologic: Alert and appropriate, no apparent acute deficits. Psychiatric: Mood and manner are appropriate. Grooming and personal hygiene are appropriate. Related Data Home Medications ?Medication ?Instructions ?Recorded ?Confirmed acetaminophen 500 mg tablet 1,000 mg PO PRN PRN 09/03/21 04/11/24 ibuprofen 600 mg tablet 600 mg PO Q6H PRN pain #30 tabs 02/18/22 04/11/24 albuterol sulfate 90 mcg/actuation 2 inh inhalation Q4H PRN shortness 06/16/22 04/11/24 breath activated powder inhaler of breath or wheezing #1 ea fluoxetine 20 mg capsule 20 mg PO DAILY 06/16/22 04/11/24 penicillin V potassium 500 mg 500 mg PO BID 10 days #20 tabs 04/11/24 tablet Previous Rx's ?Medication ?Instructions ?Recorded ibuprofen 600 mg tablet 600 mg PO Q6H PRN pain #30 tabs 02/18/22 albuterol sulfate 90 mcg/actuation 2 inh inhalation Q4H PRN shortness 06/16/22 breath activated powder inhaler of breath or wheezing #1 ea penicillin V potassium 500 mg 500 mg PO BID 10 days #20 tabs 04/11/24 tablet Allergies Allergy/AdvReac Type Severity Reaction Status Date / Time No Known Allergies Allergy Verified 04/11/24 11:06 General Stated Complaint: Sorethroat ARMANI: 4 Course Vital Signs Vital signs: Vital Signs Temperature 36.7 C 04/11/24 11:03 Pulse 101 H 04/11/24 11:03 Respiratory Rate 20 04/11/24 11:03 Blood Pressure 118/79 04/11/24 11:03 Pulse Oximetry 99 04/11/24 11:03 Temperature 36.7 C 04/11/24 11:07 Pulse 101 H 04/11/24 11:07 Respiratory Rate 20 04/11/24 11:07 Respiratory Effort Normal 04/11/24 11:07 Blood Pressure 118/79 04/11/24 11:07 Blood Pressure Position Sitting 04/11/24 11:07 Pulse Oximetry 99 04/11/24 11:07 Oxygen Delivery Method Room Air 04/11/24 11:07 Oxygen Flow Rate 0 04/11/24 11:03 Medical Decision Making Quality:SDOH Health Related Social Needs: No Data to Display PFSH All Active Problems (Updated 04/11/24 @ 11:37 by Jamar Marie MD) Pharyngitis, streptococcal, acute (Acute) Exposure to chlamydia (Acute) Partial molar (Acute) 03/04/22. Will repeat hCG 03/2022, 04/2022. Encounter for Depo-Provera contraception (Acute) Contraception (Acute) Recurrent loss (Acute) Missed (Acute) 02/12/22 at 9w EGA by CRL. D&C at 11w EGA. E. coli UTI (Acute) History of miscarriage, currently (Acute) Headache (Acute) Upper respiratory infection (Acute) Obstructive sleep apnea (Chronic) Migraine aura without headache (Acute) Snoring (Acute 05/27/15) Medical History Missed 9w EGA. D&C 09/03/21. Adjustment disorder Migraine Surgical History H/O dilation and curettage 09/03/21. for missed ab at 9w EGA. History of oral surgery Family History Mother Cervical cancer Social History Smoking/Tobacco Use Status: Never Smoking risk assessment performed?: Yes Alcohol Intake: never Drug use: Daily Substance use type: marijuana Household members: other Details: BF - Noah Number of Children: 0 Education Level: high school Do you feel safe at home: Yes Do you feel safe in your relationship?: Yes Female Reproductive History Menstrual control method: none History History 2 Para 0 Hx # Term Pregnancies 0 Multiple births 0 Hx # Pregnancies 0 Ectopic pregnancies 0 AB induced 0 Hx Number of Living Children 0 AB spontaneous 2 Past Pregnancies Del. Date GA/Weeks # Preg Succ Route Wgt Sex Labor Lgth Anesth esia Location [facility] 09/03/21 9 Arti Castanon or 02/22/[address] Spencer Delivery Date: 09/03/21 Last Updated by: Lexi Donato LPN missed ab Delivery Date: 02/22/22 Last Updated by: Lexi Donato LPN missed ab
[2024-04-11] MEDS: Penicillin V POTASSIUM 500 MG TAB PO (11:45)
[2024-04-11] MEDS: Acetaminophen 325 MG TAB 650 MG PO (11:45)
[2024-04-11] MEDS: Dexamethasone 10 MG/ML VIAL (11:45)
[2024-04-11 11:48] VITALS: BP 95/60; PULSE 92; RESP 18; TEMP 37; O2SAT 98
[2024-04-11 11:57] VITALS: BP 95/60; PULSE 92; RESP 18; TEMP 37; O2SAT 98
== END 2024-04-11 12:03 | disposition home or self-care (01) ==
LOC: ER 11:25
PROVIDERS: Emergency Provider Emergency Medicine; PCP Family Medicine
DX: J02.0 Streptococcal pharyngitis (principal)
CPT/HCPCS: 87426; 87880; 99283; J1100

== ENCOUNTER 2024-05-17 13:21 | Outpatient (REF) | payer MEDICAID, SELFPAY ==
[2024-05-17 15:32] LABS: Abs Immature Grans 0.03 10^3/uL (0.0-0.06); Absolute Basophil Count 0.06 10^3/uL (0.0-0.2); Absolute Lymphocyte Count 2.82 10^3/uL (1.2-3.4); Absolute Monocyte Count 0.46 10^3/uL (0.1-0.8); Absolute Neutrophil Count 6.91 10^3/uL (1.2-6.7); Basophils % 0.6 %; HCT 39.3 % (36.0-46.0); HGB 13.1 g/dL (11.2-15.7); Immature Grans % 0.3 %; Lymphocytes % 27.2 %; MCH 31.3 pg (27.0-33.0); MCHC 33.3 % (32.0-36.0); MCV 94 fL (80-95); MPV 9.5 fL (8.0-11.0); Monocytes % 4.4 %; Neutrophils % 66.5 %; Platelet Count 356 10^3/uL (130-400); RBC 4.18 10^6/uL (3.93-5.22); RDW 12.3 % (11.7-14.6); RDW-SD 42.7 fL; WBC 10.38 10^3/uL (4.4-10.8)
[2024-05-17 15:59] LABS: ALT 15 U/L (14-59); AST 12 U/L (15-37); Albumin 4.2 g/dL (3.4-5.0); Alkaline Phosphatase 82 U/L (46-116); Anion Gap 5.1 mmol/L (3-11); BUN 8 mg/dL (7-18); Bilirubin, Total 0.34 mg/dL (0.2-1.0); CO2 31.9 mmol/L (21.0-32.0); CREATININE 0.7 mg/dL (0.55-1.02); Calcium 9.3 mg/dL (8.5-10.1); Chloride 105 mmol/L (98-107); Estimated GFR 126.11 (mL/min/1.73m2); FREE T4 0.73 ng/dL (0.76-1.46); Glucose 83 mg/dL (74-106); Potassium 3.9 mmol/L (3.5-5.1); Sodium 142 mmol/L (136-145); TSH 1.31 uIU/mL (0.36-3.74); Total Protein 7.1 g/dL (6.4-8.2)
== END 2024-05-17 13:22 | disposition home or self-care (01) ==
LOC: NCHCN 13:21
PROVIDERS: PCP Student in an Organized Health Care Education/Training Program; Visit Provider Student in an Organized Health Care Education/Training Program
DX: R63.0 Anorexia (principal)
CPT/HCPCS: 80053; 84439; 84443; 85025

== ENCOUNTER 2024-11-08 04:22 | Outpatient (CLI) | payer MEDICAID, SELFPAY ==
[2024-11-08 11:43] LABS: Abs Immature Grans 0.07 10^3/uL (0.0-0.06); HCT 35.6 % (36.0-46.0); HGB 12.5 g/dL (11.2-15.7); Immature Grans % 0.5 %; MCH 32.3 pg (27.0-33.0); MCHC 35.1 % (32.0-36.0); MCV 92 fL (80-95); MPV 8.7 fL (8.0-11.0); Platelet Count 343 10^3/uL (130-400); RBC 3.87 10^6/uL (3.93-5.22); RDW 12.7 % (11.7-14.6); RDW-SD 42.7 fL; WBC 13.72 10^3/uL (4.4-10.8)
[2024-11-08 19:36] LABS: Hepatitis C Ab w Rflx HCV PCR Negative (Negative)
[2024-11-08 19:37] LABS: HIV-1/2 Ag & Ab Screen Negative (Negative)
[2024-11-09 10:30] LABS: Rubella IgG Ab (UVM) Positive (See Note)
[2024-11-12 14:14] LABS: Syphilis IgG w/Reflex Nonreactive (Nonreactive)
== END 2024-11-08 04:23 | disposition home or self-care (01) ==
LOC: LBO 04:23
PROVIDERS: Advanced Practice Midwife; PCP Student in an Organized Health Care Education/Training Program; Visit Provider Advanced Practice Midwife
DX: Z34.91 Encounter for supervision of normal pregnancy, unspecified, first trimester (principal)
CPT/HCPCS: 36415; 81220; 81222; 86787; 86803; 86850; 86900; 86901; 87340; 87389; 85025; 86762; 86780

== ENCOUNTER 2024-11-08 11:21 | Outpatient (REF) | payer MEDICAID, SELFPAY ==
--- NOTE | 2024-11-08 10:30 | PAPFT_PTH ---
PATIENT: Cristela Bravo LOC: [facility] U#:[id number] AGE/SX: 24/F ROOM: RE11/08/[address]: Sraanya Dwyer : 2000 BED: DIS: 11/08/2024 SPEC #: [id number] RECD: 11/08/24 13:16 STATUS: NICOLLE REEstuardo #: [id number] PATRICIA: 11/08/24 10:[address]: Saranya Dwyer DEPT: [facility] Cytology RECD BY: Ariana Colmenares ENTERED: 11/08/24 13:16 SP TYPE: PAPFT OTHR DR: Jovani Crocker Tissues: 1 - CX/ENDOCX FOR PAP SMEARS Procedures: PAP THIN PREP/UVM Screening Comments: [id number] (CHLAMYDIA/GC)
[2024-11-08 14:01] LABS: Cannabinoids THC Positive (Negative); METHADONE URINE SCREEN Negative (Negative)
[2024-11-09 11:21] LABS: Fentanyl Scr w/Rfx Confirm Negative ng/mL (<1)
[2024-11-09 12:14] LABS: Chlamydia Result Positive (Negative); GC Result Negative (Negative)
== END 2024-11-08 11:22 | disposition home or self-care (01) ==
LOC: LBN 11:21
PROVIDERS: PCP Student in an Organized Health Care Education/Training Program; Visit Provider Advanced Practice Midwife
DX: Z34.91 Encounter for supervision of normal pregnancy, unspecified, first trimester (principal); O26.891 Other specified pregnancy related conditions, first trimester; N89.8 Other specified noninflammatory disorders of vagina; Z12.4 Encounter for screening for malignant neoplasm of cervix
CPT/HCPCS: 80307; 80348; 87491; 87591; 88142; 87480; 87510; 87660

== ENCOUNTER 2025-01-05 00:32 | Outpatient (CLI) | payer MEDICAID, SELFPAY ==
--- NOTE | 2025-01-05 05:45 | DI.US_ITS ---
Exam(s) US OB 2-3 TRIMESTER EXAM: US OB 2-3 TRIMESTER CLINICAL HISTORY: ,Z34.90. TECHNIQUE: Transabdominal obstetrical ultrasound was performed. COMPARISON: US POCUS EXAM from 10/24/2024 FINDINGS: There is a single viable intrauterine gestation with cardiac activity identified-142 bpm. Amniotic fluid: There is a normal amount of amniotic fluid. Placental location: The placenta is posterior grade 1,with no evidence of placenta previa.Distance from the tip of the placenta to the internal cervical os is 3 cm. The distance from the margin of the placenta to the cord insertion on the placenta is 4.2 cm ANATOMY: A 3 vessel umbilical cord is seen. A four-chamber cardiac view was obtained. Right and left ventricular outflow tracts were imaged.However, satisfactory image of the aortic arch was not obtained. There are no obvious abnormalities of the spinal column evident. There is no obvious abnormality of the anterior abdominal wall. stomach and urinary bladder are identified and there is no evidence of hydronephrosis. Satisfactory images of the nose and lips and palate were not obtained. A small choroid plexus cyst is noted. Dating parameters place this at approximately 19 weeks and 2 days gestational age. BPD measures 19 weeks and 4 days HC measures 19 weeks and 0 days AC measures 19 weeks and 4 days FL measures 18 weeks and 5 days Estimated weight is 279 gm-0 pounds, 10 ounces Fetus is at the 19th percentile on the Hadlock scale. IMPRESSION:: Single viable intrauterine gestation which is approximately 19 weeks and 2 days gestational age, implying an JUWAN of 05/30/2025. There are no obvious anomalies evident on today's study. However, adequate imaging of the nose and lips region palate were not obtained and also require better imaging of the aortic arch. The placenta is posterior with no evidence of placenta previa. There is a normal amount of amniotic fluid. DATA REPOSITORY:
== END 2025-01-05 00:52 ==
PROVIDERS: PCP Student in an Organized Health Care Education/Training Program; Visit Provider Advanced Practice Midwife
DX: Z34.92 Encounter for supervision of normal pregnancy, unspecified, second trimester (principal); Z3A.19 19 weeks gestation of pregnancy
CPT/HCPCS: 76805

== ENCOUNTER 2025-01-05 11:00 | Outpatient (REF) | payer MEDICAID, SELFPAY ==
[2025-01-08 12:06] LABS: Chlamydia Result Negative (Negative); GC Result Negative (Negative)
== END 2025-01-05 11:01 | disposition home or self-care (01) ==
LOC: LBN 11:00
PROVIDERS: PCP Student in an Organized Health Care Education/Training Program; Visit Provider Obstetrics & Gynecology
DX: Z11.3 Encounter for screening for infections with a predominantly sexual mode of transmission (principal)
CPT/HCPCS: 87491; 87591

== ENCOUNTER 2025-01-10 14:56 | Outpatient (CLI) | payer MEDICAID, SELFPAY ==
--- NOTE | 2025-01-10 14:05 | DI.US_ITS ---
Exam(s) US OB F/U FACIAL/LVOT/RVOT EXAM: US OB F/U FACIAL/LVOT/RVOT CLINICAL HISTORY: FU SURVEY NOSE/LIPS/PALATE/AORTIC ARCH. TECHNIQUE: Transabdominal obstetrical ultrasound performed. COMPARISON: US US OB 2-3 TRIMESTER from 01/05/2025 FINDINGS: This is a limited examination. This is a continuation from the survey from 01/05/2025. Number of fetuses: 1 heart rate: 136bpm Placental location: There is a grade 1 posterior placenta. ANATOMICAL SURVEY: The aortic arch was visualized and appears grossly unremarkable. The stomach was visualized and is grossly unremarkable. There is no echogenic debris seen within the stomach at this time. ANATOMICAL SURVEY: nose/lips: The remains a question of a possible cleft lip suggested on the cine loop from series 2, image 130. Palate: Unremarkable. IMPRESSION: 1. Single live intrauterine gestation as above. 2. Findings concerning for a cleft lip. DATA REPOSITORY:
== END 2025-01-10 15:16 ==
LOC: DI 14:56
PROVIDERS: PCP Student in an Organized Health Care Education/Training Program; Visit Provider Advanced Practice Midwife
DX: Z36.2 Encounter for other antenatal screening follow-up (principal)
CPT/HCPCS: 76815

== ENCOUNTER 2025-02-02 12:16 | Outpatient (REF) | payer MEDICAID, SELFPAY ==
[2025-02-05 12:32] LABS: Chlamydia Result Negative (Negative); GC Result Negative (Negative)
== END 2025-02-02 12:17 | disposition home or self-care (01) ==
LOC: LBN 12:16
PROVIDERS: PCP Student in an Organized Health Care Education/Training Program; Visit Provider Obstetrics & Gynecology
DX: Z11.3 Encounter for screening for infections with a predominantly sexual mode of transmission (principal)
CPT/HCPCS: 87491; 87591

== ENCOUNTER 2025-02-06 19:12 | Outpatient (CLI) | payer MEDICAID, SELFPAY ==
[2025-02-06 19:55] VITALS: BP 107/60; PULSE 80; TEMP 36.9
[2025-02-06 20:14] VITALS: BP 107/60; PULSE 80
--- NOTE | 2025-02-07 06:54 | W.OBNST ---
Date of service: 02/06/25 Time of Service: 22:00 NST Evaluation Reason for NST Reasons for Nonstress Test: DECREASED MOVEMENT Gestational Age Gestational Age in Weeks and Days: 24 Weeks and 2Days Test and Monitor Explained Test/Monitor Explained: Test Explained, Monitor Explained and Patient Verbalized Understanding Vital Signs Blood Pressure: 107/60 Pulse: 80 Temperature: 98.5 F NST Information Date on Monitor: 02/06/25 Time on Monitor: 19:52 Date off Monitor: 02/06/25 Time off Monitor: 20:23 Total Time on Monitor: 31 NST Interventions: None NST Evaluation Patient States Movement: Absent FHR Baseline: 130 Variability: Moderate 6-25 bpm Accelerations: 15x15 Decelerations: None NST Results: Reactive Note Ultrasound Done: N/A. NST Note Note: Category 1, reactive NST NST Reviewed and Verified by: Rufina Alvarado
[2025-02-07 06:55] VITALS: BP 107/60; PULSE 80; TEMP 36.9
== END 2025-02-06 20:25 | disposition home or self-care (01) ==
LOC: BCD 19:12 → OBS 19:54
PROVIDERS: PCP Student in an Organized Health Care Education/Training Program; Visit Provider Obstetrics & Gynecology
DX: O36.8121 Decreased fetal movements, second trimester, fetus 1 (principal); Z3A.24 24 weeks gestation of pregnancy
CPT/HCPCS: 59025

== ENCOUNTER 2025-02-28 01:40 | Outpatient (CLI) | payer MEDICAID, SELFPAY ==
[2025-02-28 14:06] LABS: Abs Immature Grans 0.23 10^3/uL (0.0-0.06); HCT 33.3 % (36.0-46.0); HGB 10.7 g/dL (11.2-15.7); Immature Grans % 2.1 %; MCH 32.2 pg (27.0-33.0); MCHC 32.1 % (32.0-36.0); MCV 100 fL (80-95); MPV 8.6 fL (8.0-11.0); Platelet Count 222 10^3/uL (130-400); RBC 3.32 10^6/uL (3.93-5.22); RDW 12.5 % (11.7-14.6); RDW-SD 45.7 fL; WBC 10.87 10^3/uL (4.4-10.8)
[2025-02-28 15:21] LABS: Glucose,1 Hr (Glucola) 83 mg/dL (80-140)
== END 2025-02-28 01:41 | disposition home or self-care (01) ==
PROVIDERS: PCP Student in an Organized Health Care Education/Training Program; Visit Provider Obstetrics & Gynecology
DX: Z34.92 Encounter for supervision of normal pregnancy, unspecified, second trimester (principal)
CPT/HCPCS: 36415; 82950; 85025

== ENCOUNTER 2025-02-28 13:18 | Outpatient (REF) | payer MEDICAID, SELFPAY ==
[2025-02-28 15:26] LABS: Cannabinoids THC Positive (Negative); METHADONE URINE SCREEN Negative (Negative)
[2025-03-02 12:22] LABS: Fentanyl Scr w/Rfx Confirm Negative ng/mL (<1)
== END 2025-02-28 13:19 | disposition home or self-care (01) ==
LOC: LBN 13:18
PROVIDERS: PCP Student in an Organized Health Care Education/Training Program; Visit Provider Obstetrics & Gynecology
DX: Z34.93 Encounter for supervision of normal pregnancy, unspecified, third trimester (principal)
CPT/HCPCS: 80307; 80348

== ENCOUNTER 2025-04-20 13:24 | Outpatient (REF) | payer MEDICAID, SELFPAY | END 2025-04-20 13:25 | disposition home or self-care (01) | LOC: LBN 13:24 | PROVIDERS: PCP Student in an Organized Health Care Education/Training Program; Visit Provider Obstetrics & Gynecology | DX: O26.893 Other specified pregnancy related conditions, third trimester (principal); R10.9 Unspecified abdominal pain; N76.0 Acute vaginitis | CPT/HCPCS: 87086; 87480; 87510; 87660 ==

== ENCOUNTER → 2025-05-01 00:43 | Outpatient (CLI) | payer MEDICAID, SELFPAY ==
--- NOTE | 2025-05-01 06:30 | DI.US_ITS ---
Exam(s) US OB [place] WEIGHT EXAM: US OB [place] WEIGHT CLINICAL HISTORY: Short fundal heights,iugr,O36.5990. TECHNIQUE: Transabdominal obstetrical ultrasound was performed. COMPARISON: US US OB F/U FACIAL/LVOT/RVOT from 01/10/2025 FINDINGS: There is a single viable intrauterine gestation with cardiac activity identified-150 bpm The fetus is presently in cephalic position with spine pointing anteriorly.. Amniotic fluid: There is a normal amount of amniotic fluid with an [place] of 16.0cm. Placental location: The placenta is posterior fundal grade 2,with no evidence of placenta previa. Dating parameters place this at approximately 34 weeks and 1 day gestational age, implying JUWAN of 06/11/2025. BPD measures 33 weeks and 3 days HC measures 32 weeks and 6 days AC measures 36 weeks and 4 days FL measures 33 weeks and 3 days Estimated weight is 2573 gm-pounds 11 ounces Fetus is at the 20th percentile on the Hadlock scale. IMPRESSION:: Viable 3rd trimester gestation, as described above. DATA REPOSITORY:
== END ==
LOC: DI 00:43
PROVIDERS: PCP Student in an Organized Health Care Education/Training Program; Visit Provider Obstetrics & Gynecology
DX: O36.5930 Maternal care for other known or suspected poor fetal growth, third trimester, not applicable or unspecified (principal)
CPT/HCPCS: 76816

== ENCOUNTER 2025-05-09 10:24 | Outpatient (REF) | payer MEDICAID, SELFPAY | END 2025-05-09 10:25 | disposition home or self-care (01) | LOC: LBN 10:24 | PROVIDERS: PCP Student in an Organized Health Care Education/Training Program; Visit Provider Obstetrics & Gynecology | DX: Z34.93 Encounter for supervision of normal pregnancy, unspecified, third trimester (principal) | CPT/HCPCS: 87081 ==